=== PATIENT | female | born 1945 | race Caucasian/White ===

== ENCOUNTER 2020-06-12 11:43 | Observation (INO) | payer OTHER ==
[2020-06-12 12:16] LABS: Absolute Lymphocytes (CBC) 1.6 K/uL (0.7-4.9); Basophils % 0.8 % (0-1.3); Hematocrit 43.2 % (36.0-45.0); MPV 8.7 fL (7.6-11.3); RBC Red Blood Cell Count 4.73 M/uL (3.86-4.86)
--- NOTE | 2020-06-12 12:18 | EDPHYS ---
Physician Documentation [facility] Name: Missy Palacios Age: 75 yrs Sex: Female : 1945 Arrival Date: 06/12/2020 Time: 11:47 Bed 4 Private MD: Blair Poole HPI: 06/12 12:08 This 75 yrs old Female presents to ER via Wheelchair with complaints of ana possible tia, couldnt talk prior to arrival. 12:08 The patient's problem is reported as dysphasia, weakness, in the right lower extremity. ana Onset: The symptoms/episode began/occurred gradually, just prior to arrival, this morning, 3 day(s) ago, and became worse this morning. Duration: The episodes are intermittent, lasting 30 second(s). Context: the episode(s) was witnessed, by family, daughter. The symptoms are alleviated by nothing. The symptoms are aggravated by nothing. The patient presents to the emergency department with a speech or higher order brain function problem, aphasia, difficult walking, the patient falls to the right, paresthesias of the left upper extremity, right upper extremity. Context: occurred at home. Associated signs and symptoms: The patient has no apparent associated signs or symptoms. Associated signs and symptoms: Pertinent positives: dizziness, gait abnormality. Historical: - Allergies: 12:02 No Known Allergies; ss - Home Meds: 12:02 enalapril maleate 40 mg Oral tab 1 tab once daily [Active]; ss - Immunization history:: Adult Immunizations up to date. - Social history:: Smoking status: Patient denies any tobacco usage or history of. ROS: 12:10 Constitutional: Negative for fever, chills, and weight loss, Eyes: Negative for injury, ana pain, redness, and discharge, ENT: Negative for injury, pain, and discharge, Neck: Negative for injury, pain, and swelling, Cardiovascular: Negative for chest pain, palpitations, and edema, Respiratory: Negative for shortness of breath, cough, wheezing, and pleuritic chest pain, Abdomen/GI: Negative for abdominal pain, nausea, vomiting, diarrhea, and constipation, Back: Negative for injury and pain, : Negative for injury, bleeding, discharge, and swelling, MS/Extremity: Negative for injury and deformity, Skin: Negative for injury, rash, and discoloration, Neuro: Negative for headache, weakness, numbness, tingling, and seizure, Psych: Negative for depression, anxiety, suicide ideation, homicidal ideation, and hallucinations, Allergy/Immunology: Negative for hives, rash, and allergies, Endocrine: Negative for neck swelling, polydipsia, polyuria, polyphagia, and marked weight changes, Hematologic/Lymphatic: Negative for swollen nodes, abnormal bleeding, and unusual bruising. Exam: 12:10 Constitutional: This is a well developed, well nourished patient who is awake, alert, ana and in no acute distress. Head/Face: Normocephalic, atraumatic. Eyes: Pupils equal round and reactive to light, extra-ocular motions intact. Lids and lashes normal. Conjunctiva and sclera are non-icteric and not injected. Cornea within normal limits. Periorbital areas with no swelling, redness, or edema. ENT: Nares patent. No nasal discharge, no septal abnormalities noted. Tympanic membranes are normal and external auditory canals are clear. Oropharynx with no redness, swelling, or masses, exudates, or evidence of obstruction, uvula midline. Mucous membranes moist. Neck: Trachea midline, no thyromegaly or masses palpated, and no cervical lymphadenopathy. Supple, full range of motion without nuchal rigidity, or vertebral point tenderness. No Meningismus. Chest/axilla: Normal chest wall appearance and motion. Nontender with no deformity. No lesions are appreciated. Cardiovascular: Regular rate and rhythm with a normal S1 and S2. No gallops, murmurs, or rubs. Normal PMI, no JVD. No pulse deficits. Respiratory: Lungs have equal breath sounds bilaterally, clear to auscultation and percussion. No rales, rhonchi or wheezes noted. No increased work of breathing, no retractions or nasal flaring. Abdomen/GI: Soft, non-tender, with normal bowel sounds. No distension or tympany. No guarding or rebound. No evidence of tenderness throughout. Back: No spinal tenderness. No costovertebral tenderness. Full range of motion. Skin: Warm, dry with normal turgor. Normal color with no rashes, no lesions, and no evidence of cellulitis. MS/ Extremity: Pulses equal, no cyanosis. Neurovascular intact. Full, normal range of motion. Neuro: Awake and alert, GCS 15, oriented to person, place, time, and situation. Cranial nerves II-XII grossly intact. Motor strength 5/5 in all extremities. Sensory grossly intact. Cerebellar exam normal. Normal gait. Psych: Awake, alert, with orientation to person, place and time. Behavior, mood, and affect are within normal limits. 12:14 Radiologist reports: see report ana 13:26 ECG was reviewed by the Attending Physician. ana Vital Signs: 11:58 BP 181 / 101; Pulse 68; Resp 16; Temp 98; Pulse Ox 98% on R/A; Weight 67.59 kg; Height sv 5 ft. 7 in. (170.18 cm); Pain 0/10; 12:34 BP 190 / 105; Pulse 70; Resp 16; Pulse Ox 99% ; sv 13:00 BP 198 / 96; Pulse 65; Resp 15; Pulse Ox 99% ; sv 13:15 BP 191 / 99; Pulse 67; Resp 12; Pulse Ox 100% ; sv 14:34 BP 182 / 87; Pulse 69; Resp 17; Pulse Ox 98% on R/A; tw2 11:58 Body Mass Index 23.34 (67.59 kg, 170.18 cm) sv NIH Stroke Scale Scores: 12:00 NIHSS Score: 0 sv 12:10 NIHSS Score: 0 ana MDM: 11:55 Patient medically screened. ana 12:13 Differential diagnosis: CVA, TIA. Data reviewed: vital signs, nurses notes, lab test ana result(s), EKG, radiologic studies, CT scan, MRI, plain films. Data interpreted: satellite project site monitor: rate is 68 beats/min, rhythm is normal sinus rhythm, Pulse oximetry: is not applicable for this patient encounter. Test interpretation: by ED physician or midlevel provider: ECG, plain radiologic studies. Counseling: I had a detailed discussion with the patient and/or guardian regarding: the historical points, exam findings, and any diagnostic results supporting the discharge/admit diagnosis, the presence of at least one elevated blood pressure reading (>120/80) during this emergency department visit, lab results, radiology results, the need for further work-up and treatment in the hospital. ED course: pt not a tpa candidate , at baseline, on off 3 days, now at normal , no deficits. 14:57 ED course: not atpa candidate, back to baseline, nih 0, symptoms on and off 3 days, no ana current deficit, daughter agrees. 06/12 12:04 Order name: Basic Metabolic Panel; Complete Time: 13:25 sv 06/12 12:04 Order name: CBC with Diff; Complete Time: 12:23 sv 06/12 12:04 Order name: Protime (+inr); Complete Time: 13:25 sv 06/12 12:04 Order name: Ptt, Activated; Complete Time: 13:25 sv 06/12 12:12 Order name: Glucose, Ancillary Testing; Complete Time: 12:23 EDMS 06/12 13:06 Order name: T4 Free EDMS 06/12 13:06 Order name: Thyroid Stimulating Hormone EDMS 06/12 13:06 Order name: Basic Metabolic Panel EDMS 06/12 13:06 Order name: Basic Metabolic Panel EDPA 06/12 13:06 Order name: CBC with Automated Diff EDMS 06/12 13:06 Order name: CBC with Automated Diff EDMS 06/12 13:06 Order name: Magnesium EDPA 06/12 13:06 Order name: Magnesium EDPA 06/12 13:07 Order name: Urinalysis EDPA 06/12 11:58 Order name: CT Stroke Brain w/o Contrast; Complete Time: 13:25 ss 06/12 12:04 Order name: Stroke CXR 1 View; Complete Time: 13:25 sv 06/12 12:04 Order name: EKG; Complete Time: 12:04 sv 06/12 12:04 Order name: Accucheck; Complete Time: 12:04 sv 06/12 12:04 Order name: Cardiac monitoring; Complete Time: 13:29 sv 06/12 12:04 Order name: EKG - Nurse/Tech; Complete Time: 13:29 sv 06/12 12:04 Order name: IV Saline Lock; Complete Time: 12:04 sv 06/12 12:10 Order name: Brain Wo Cont; Complete Time: 13:25 EDMS 06/12 13:03 Order name: CONS Physician Consult EDPA 06/12 13:06 Order name: Physical Therapy Consult EDPA 06/12 13:06 Order name: Heart Healthy EDPA 06/12 12:04 Order name: Labs collected and sent; Complete Time: 12:04 sv 06/12 12:04 Order name: NPO; Complete Time: 12:04 sv 06/12 12:04 Order name: O2 Per Protocol; Complete Time: 12:04 sv 06/12 12:04 Order name: O2 Sat Monitoring; Complete Time: 12:05 sv 06/12 12:04 Order name: Stroke Swallow Screen; Complete Time: 12:05 sv EC:26 Rate is 64 beats/min. Rhythm is regular. QRS Vaughn is Normal. [place] interval is normal. QRS ana interval is normal. QT interval is normal. No Q waves. T waves are Normal. No ST changes noted. Clinical impression: NSR w/ Non-specific ST/T Changes and No evidence of ischemia. Interpreted by me. Reviewed by me. Administered Medications: 13:20 Drug: foLIC Acid 1 mg Route: IVPB; Site: right forearm; sv 13:22 Follow up: Response: No adverse reaction; IV Status: Completed infusion sv 13:20 Drug: NS 0.9% 1000 ml Route: IV; Rate: 1 bolus; Site: right forearm; sv 14:30 Follow up: Response: No adverse reaction; IV Status: Completed infusion; IV Intake: sv 1000ml 13:20 Drug: Aspirin Chewable Tablet 324 mg Route: PO; sv 14:00 Follow up: Response: No adverse reaction sv 15:13 CANCELLED (ok by Dr Serrano to give upstairs): Zocor 20 mg PO once sv Point of Care Testing: Blood Glucose: 12:00 Blood Glucose: 92 mg/dL; sv Ranges: Critical Glucose Levels:Adult <50 mg/dl or >400 mg/dl <40 mg/dl or >180 mg/dl Disposition: 06/12/20 12:17 Hospitalization ordered by Yonny Lebron for Observation. Preliminary diagnosis are Transient cerebral ischemic attack, unspecified, Aphasia, Cerebral infarction - left frontal , acute. - Bed requested for Telemetry/MedSurg (observation). - Status is Observation. sv - Condition is Fair. - Problem is new. - Symptoms have improved. NIH Stroke Scale - NIH Stroke Score Date: 06/12/2020 Time: 12:00 Total Score = 0 1a. Level of Consciousness (LOC) - 0(Alert) 1b. Level of Consciousness (LOC) (Year \T\ Age) - 0(Both) 1c. LOC Commands (Open \T\ Closes Eyes/Chemical Tank Worker) - 0(Both) 2. Best Gaze (Lateral Gaze Paresis) - 0(Normal) 3. Visual Field Loss - 0(No visual loss) 4. Facial Palsy - 0(Normal) 5a. Left Arm: Motor (10-second hold) - 0(No drift) 5b. Right Arm: Motor (10-second hold) - 0(No drift) 6a. Left Leg: Motor (5-second hold - always test supine) - 0(No drift) 6b. Right Leg: Motor (5-second hold - always test supine) - 0(No drift) 7. Limb Ataxia (finger/nose \T\ heel/varela - test with eyes open) - 0(Absent) 8. Sensory Loss (pinprick arms/legs/face) - 0(Normal) 9. Best Language: Aphasia (description/naming/reading) - 0(No aphasia) 10. Dysarthria (speech clarity - read or repeat words) - 0(Normal) 11. Extinction and Inattention (visual/tactile/auditory/spatial/personal) - 0(No abnormality) Initials: NIH Stroke Scale - NIH Stroke Score Date: 06/12/2020 Time: 12:10 Total Score = 0 1a. Level of Consciousness (LOC) - 0(Alert) 1b. Level of Consciousness (LOC) (Year \T\ Age) - 0(Both) 1c. LOC Commands (Open \T\ Closes Eyes/Chemical Tank Worker) - 0(Both) 2. Best Gaze (Lateral Gaze Paresis) - 0(Normal) 3. Visual Field Loss - 0(No visual loss) 4. Facial Palsy - 0(Normal) 5a. Left Arm: Motor (10-second hold) - 0(No drift) 5b. Right Arm: Motor (10-second hold) - 0(No drift) 6a. Left Leg: Motor (5-second hold - always test supine) - 0(No drift) 6b. Right Leg: Motor (5-second hold - always test supine) - 0(No drift) 7. Limb Ataxia (finger/nose \T\ heel/varela - test with eyes open) - 0(Absent) 8. Sensory Loss (pinprick arms/legs/face) - 0(Normal) 9. Best Language: Aphasia (description/naming/reading) - 0(No aphasia) 10. Dysarthria (speech clarity - read or repeat words) - 0(Normal) 11. Extinction and Inattention (visual/tactile/auditory/spatial/personal) - 0(No abnormality) Initials: ana Signatures: Dispatcher [employer] EDMS Carlene Dumont Linda Mon RN RN Blair Pool MD MD cha Smirch, Shelby, RN RN ss Corrections: (The following items were deleted from the chart) 12:10 12:09 MR STROKE PROTOCOL+MRI.RAD.BRZ ordered. EDMS EDMS 13:19 12:17 Hospitalization Ordered by Yonny Lebron MD for Observation. Preliminary bd diagnosis is Transient cerebral ischemic attack, unspecified; Aphasia. Bed requested for Telemetry/MedSurg (observation). Status is Observation. Condition is Fair. Problem is new. Symptoms have improved. ana 14:57 13:19 06/12/2020 12:17 Hospitalization Ordered by Yonny Lebron MD for ana Observation. Preliminary diagnosis is Transient cerebral ischemic attack, unspecified; Aphasia. Bed requested for Telemetry/MedSurg (observation). Status is Observation. Condition is Fair. Problem is new. Symptoms have improved. bd 15:13 14:57 Zocor 20 mg PO once ordered. ana sv 15:37 14:57 06/12/2020 12:17 Hospitalization Ordered by Yonny Lebron MD for sv Observation. Preliminary diagnosis is Transient cerebral ischemic attack, unspecified; Aphasia; Cerebral infarction - left frontal , acute. Bed requested for Telemetry/MedSurg (observation). Status is Observation. Condition is Fair. Problem is new. Symptoms have improved. ana
--- NOTE | 2020-06-12 12:18 | ER ---
Nurse's Notes [facility] Name: Missy Palacios Age: 75 yrs Sex: Female : 1945 Arrival Date: 06/12/2020 Time: 11:47 Bed 4 Private MD: Diagnosis: Transient cerebral ischemic attack, unspecified;Aphasia;Cerebral infarction-left frontal , acute Presentation: 06/12 12:00 Chief complaint: Patient's son or daughter states: Unable to speak 20 minutes ago ss lasted until arrival to ER. Pt reports she is completely back to her baseline. Daughter reports she has been under a lot of stress lately. Patient also reports that since Thursday her R leg seems to be intermittently dragging. Coronavirus screen: Patient denies a cough. Patient denies shortness of breath or difficulty breathing. Patient denies measured and/or subjective temperature greater than 100.4F prior to today's visit. Patient denies travel on a cruise ship or to a country the [facility] currently lists as an affected area. Patient denies contact with known and/or suspected case of COVID-19. Proceed with normal triage. Ebola Screen: Patient denies exposure to infectious person. Patient denies travel to an Ebola-affected area in the 21 days before illness onset. Initial Sepsis Screen: Does the patient meet any 2 criteria? No. Patient's initial sepsis screen is negative. Does the patient have a suspected source of infection? No. Patient's initial sepsis screen is negative. Risk Assessment: Do you want to hurt yourself or someone else? Patient reports no desire to harm self or others. Onset of symptoms was June 12, 2020. 12:00 Method Of Arrival: Wheelchair ss 12:00 Acuity: SARBJIT 2 ss 12:00 No acute neurological deficit is noted. Pre-hospital glucose is not applicable to this sv patient. 12:[address] Serrano at bedside at this time. tw2 Triage Assessment: 15:22 The onset of the patients symptoms was June 12, 2020 at 11:40. sv Stroke Activation: Symptom onset > 6 hours Physician: Stroke Attending; Name: ; Notified At: ; Arrived At: Physician: Chief Stroke Resident; Name: ; Notified At: ; Arrived At: Physician: Stroke Resident; Name: ; Notified At: ; Arrived At: Physician: ED Attending; Name: ; Notified At: ; Arrived At: Physician: ED Resident; Name: ; Notified At: ; Arrived At: Historical: - Allergies: 12:02 No Known Allergies; ss - Home Meds: 12:02 enalapril maleate 40 mg Oral tab 1 tab once daily [Active]; ss - Immunization history:: Adult Immunizations up to date. - Social history:: Smoking status: Patient denies any tobacco usage or history of. Screenin:02 Abuse screen: Denies threats or abuse. Nutritional screening: No deficits noted. tw2 Tuberculosis screening: No symptoms or risk factors identified. Fall Risk Secondary diagnosis (15 points) impaired mobility. Assessment: 12:00 VAN Scoring: Arm Drift: Patients demonstrates NO arm weakness. Patient is VAN Negative. sv Reassessment: Dr Serrano at the bedside. 12:00 Reassessment: Daughter reports that she is at her baseline. General: Appears in no sv apparent distress. comfortable, slender, well developed, Behavior is calm, cooperative, appropriate for age. Pain: Denies pain. Neuro: Level of Consciousness is awake, alert, obeys commands, Oriented to person, place, time, situation, Moves all extremities. Full function Speech is normal, Facial symmetry appears normal, Denies weakness dizziness, numbness headache. Respiratory: Airway is patent Respiratory effort is even, unlabored, Respiratory pattern is regular, symmetrical. Derm: Skin is intact, Skin is pink, warm \T\ dry. Musculoskeletal: Range of motion: intact in all extremities. 12:00 T-PA (Activase) Screening: Contraindications: Rapidly improving condition or minor sv deficit: Yes. 12:01 Patient has been NPO before screening. The patient is alert, and able to follow tw2 commands. The patient does not exhibit slurred or garbled speech. The patient is not exhibiting difficulty speaking. The patient is exhibiting difficulty understanding words. The patient is able to swallow own secretions with no drooling or need for suction. Patient tolerated one teaspoon of water. No drooling, immediate coughing, gurgling, or clearing of the throat was noted. The patient tolerated 90mL of water. No drooling, immediate coughing, gurgling, or clearing of the throat was noted. The patient passed the bedside swallow screening. Oral medications may be given as ordered. Contact Physician for further diet orders. Provider notified of bedside swallow screening results: Blair Serrano MD. 13:20 Reassessment: Patient appears in no apparent distress at this time. No changes from sv previously documented assessment. Patient and/or family updated on plan of care and expected duration. Pain level reassessed. Patient is alert, oriented x 3, equal unlabored respirations, skin warm/dry/pink. 13:33 Reassessment: Attempted to call report, nurse to call back. sv 14:00 Reassessment: Patient appears in no apparent distress at this time. No changes from sv previously documented assessment. Patient and/or family updated on plan of care and expected duration. Pain level reassessed. Patient is alert, oriented x 3, equal unlabored respirations, skin warm/dry/pink. Vital Signs: 11:58 BP 181 / 101; Pulse 68; Resp 16; Temp 98; Pulse Ox 98% on R/A; Weight 67.59 kg; Height sv 5 ft. 7 in. (170.18 cm); Pain 0/10; 12:34 BP 190 / 105; Pulse 70; Resp 16; Pulse Ox 99% ; sv 13:00 BP 198 / 96; Pulse 65; Resp 15; Pulse Ox 99% ; sv 13:15 BP 191 / 99; Pulse 67; Resp 12; Pulse Ox 100% ; sv 14:34 BP 182 / 87; Pulse 69; Resp 17; Pulse Ox 98% on R/A; tw2 11:58 Body Mass Index 23.34 (67.59 kg, 170.18 cm) sv NIH Stroke Scale Scores: 12:00 NIHSS Score: 0 sv 12:10 NIHSS Score: 0 ana ED Course: 11:47 Patient arrived in ED. am2 11:55 Blair Serrano MD is Attending Physician. ana 11:56 Placed in gown. Bed in low position. Pulse ox on. NIBP on. tw2 11:58 Arm band placed on right wrist. ss 11:59 Christine Tomas, RN is Primary Nurse. [id number] 12:00 Inserted saline lock: 20 gauge in right forearm, using aseptic technique. Blood sv collected. Flushed right forearm with 5 ml normal saline. 12:02 Triage completed. ss 12:03 Linda Osborn, RN is Primary Nurse. sv 12:13 CT Stroke Brain w/o Contrast In Process Unspecified. EDMS 12:15 Brain Wo Cont Sent. sv 12:16 Yonny Lebron MD is Hospitalizing Provider. ana 12:26 Brain Wo Cont In Process Unspecified. EDMS 12:28 Patient moved to MRI. ss 13:01 Stroke CXR 1 View In Process Unspecified. EDMS 14:34 Report given to LIAM Rodriguez. tw2 15:22 No provider procedures requiring assistance completed. Patient admitted, IV remains in sv place. intact. Administered Medications: 13:20 Drug: foLIC Acid 1 mg Route: IVPB; Site: right forearm; sv 13:22 Follow up: Response: No adverse reaction; IV Status: Completed infusion sv 13:20 Drug: NS 0.9% 1000 ml Route: IV; Rate: 1 bolus; Site: right forearm; sv 14:30 Follow up: Response: No adverse reaction; IV Status: Completed infusion; IV Intake: sv 1000ml 13:20 Drug: Aspirin Chewable Tablet 324 mg Route: PO; sv 14:00 Follow up: Response: No adverse reaction sv 15:13 CANCELLED (ok by Dr Serrano to give upstairs): Zocor 20 mg PO once sv Point of Care Testing: Blood Glucose: 12:00 Blood Glucose: 92 mg/dL; sv Ranges: Intake: 14:30 IV: 1000ml; Total: 1000ml. sv Outcome: 12:17 Decision to Hospitalize by Provider. ana 14:34 Admitted to Med/surg accompanied by tech, room 203, Report called to LIAM Rodriguez tw2 14:34 Condition: stable 14:34 Instructed on the need for admit. 15:37 Patient left the ED. sv NIH Stroke Scale - NIH Stroke Score Date: 06/12/2020 Time: 12:00 Total Score = 0 1a. Level of Consciousness (LOC) - 0(Alert) 1b. Level of Consciousness (LOC) (Year \T\ Age) - 0(Both) 1c. LOC Commands (Open \T\ Closes Eyes/Senior Officer) - 0(Both) 2. Best Gaze (Lateral Gaze Paresis) - 0(Normal) 3. Visual Field Loss - 0(No visual loss) 4. Facial Palsy - 0(Normal) 5a. Left Arm: Motor (10-second hold) - 0(No drift) 5b. Right Arm: Motor (10-second hold) - 0(No drift) 6a. Left Leg: Motor (5-second hold - always test supine) - 0(No drift) 6b. Right Leg: Motor (5-second hold - always test supine) - 0(No drift) 7. Limb Ataxia (finger/nose \T\ heel/varela - test with eyes open) - 0(Absent) 8. Sensory Loss (pinprick arms/legs/face) - 0(Normal) 9. Best Language: Aphasia (description/naming/reading) - 0(No aphasia) 10. Dysarthria (speech clarity - read or repeat words) - 0(Normal) 11. Extinction and Inattention (visual/tactile/auditory/spatial/personal) - 0(No abnormality) Initials: kayce NIH Stroke Scale - NIH Stroke Score Date: 06/12/2020 Time: 12:10 Total Score = 0 1a. Level of Consciousness (LOC) - 0(Alert) 1b. Level of Consciousness (LOC) (Year \T\ Age) - 0(Both) 1c. LOC Commands (Open \T\ Closes Eyes/Senior Officer) - 0(Both) 2. Best Gaze (Lateral Gaze Paresis) - 0(Normal) 3. Visual Field Loss - 0(No visual loss) 4. Facial Palsy - 0(Normal) 5a. Left Arm: Motor (10-second hold) - 0(No drift) 5b. Right Arm: Motor (10-second hold) - 0(No drift) 6a. Left Leg: Motor (5-second hold - always test supine) - 0(No drift) 6b. Right Leg: Motor (5-second hold - always test supine) - 0(No drift) 7. Limb Ataxia (finger/nose \T\ heel/varela - test with eyes open) - 0(Absent) 8. Sensory Loss (pinprick arms/legs/face) - 0(Normal) 9. Best Language: Aphasia (description/naming/reading) - 0(No aphasia) 10. Dysarthria (speech clarity - read or repeat words) - 0(Normal) 11. Extinction and Inattention (visual/tactile/auditory/spatial/personal) - 0(No abnormality) Initials: ana Signatures: Dispatcher [employer] Linda Suarez RN RN sv Anderson, Corey, MD MD cha Smirch, Shelby, RN RN ss Bren Anderson RN RN tw2 Felisha Ozuna 2 Christine Tomas RN RN [id number] Corrections: (The following items were deleted from the chart) 12:15 11:58 BP 181 / 101; Pulse 68bpm; Resp 16bpm; Pulse Ox 98% RA; 67.59 kg; Height sv 5 ft. 7 in.; BMI: 23.3; Pain 0/10; ss
[2020-06-12] MEDS ORDERED: FOLIC ACID 5 MG/ML VIAL ONE (12:20)
[2020-06-12] MEDS ORDERED: NA CHLORIDE 0.9% 1,000 ML ONE (12:20)
[2020-06-12 12:23] LABS: Protime INR 0.97
--- NOTE | 2020-06-12 12:25 | RAD REPORT ---
EXAM DESCRIPTION: CT - Ct Stroke Brain Wo Cont - 06/12/2020 12:14 pm CLINICAL HISTORY: possible TIA Headache, drowsiness, CVA symptomology COMPARISON: No comparisons TECHNIQUE: All CT scans are performed using dose optimization technique as appropriate and may inclu de automated exposure control or mA/KV adjustment according to patient size. FINDINGS: No intracranial hemorrhage, hydrocephalus or extra-axial fluid collection.Mild generalized brain atrophy is present with moderate periventricular and deep white matter chronic microvascular i schemic changes.No areas of brain edema or evidence of midline shift. Small old lacune identified lef t insular region measuring 4 mm. The paranasal sinuses and mastoids are clear. The calvarium is intact. IMPRESSION: No acute intracranial abnormality. If there is continued clinical concern for CVA, MR i maging of the brain would be recommended. The findings were given to Dr. Serrano in the ER on 06/12/2020 at 12:21 p.m.
[2020-06-12 12:28] LABS: Potassium 4.1 mmol/L (3.5-5.1)
[2020-06-12] MEDS ORDERED: ASPIRIN 81 MG CHEWABLE TABLET ONE (12:39)
--- NOTE | 2020-06-12 12:43 | RAD REPORT ---
EXAM DESCRIPTION: MRI - Brain Wo Cont - 06/12/2020 12:32 pm CLINICAL HISTORY: tia COMPARISON: Head CT June 12, 2020 TECHNIQUE: Axial, sagittal, and coronal magnetic images of the brain were obtained. Contrast was not requested FINDINGS: Moderate signal within periventricular, deep and subcortical white matter likely ischemic secondary to small vessel disease Small areas of abnormal signal within the basal ganglia likely old lacunar infarction. Diffusion-weighted/ADC mapping demonstrates a 1 millimeter area of abnormal signal within the deep wh ite matter of the posterior left frontal lobe consistent with an acute micro infarct The ventricles are normal caliber. An extra-axial fluid collection is not present Fluid within the sinuses/mastoids is not noted IMPRESSION: Acute micro infarct white matter left frontal lobe
--- OUTSIDE RECORDS SUMMARY | 2020-06-12 12:51 | XMS REPORT | Continuity of Care Document ---
:1945 Author Organization [facility] Care Team Providers Name Role Phone [facility] Unavailable Un available Problems Problem Status Onset Classification Date Comments Sourc e Date Reported TONSILLITIS, Active Condition 10/24/2014 Med ical ACUTE 4 Group ALLERGIC Active Condition 10/24/2014 Medica l RHINITIS CAUSE 4 Group UNSPECIFIED Allergic Active Problem 12/03/2019 Data migrated [facility] dical rhinitis 4 from Group (disorder) Centricity on 04/14/15. Medications Medication Details Route Status Patient Ordering Order Source Instructions Provider Date Dexamethasone 8 mg, Inactive Route: 020 Medical intra-ARTIC Group ULAR, ONCE, Dosing Weight 70.455, kg, Priority: Routine, Start date: 11/28/19 15:41:00 STOCK CHASER, Stop date: 11/28/19 15:41:00 STOCK CHASER enalapril 10 mg 10 mg = 1 Active MH oral tablet tab, PO, 019 Medical Daily, Group Patient takes this in addition to 20mg tablet to =30mg per day., # 90 tab, 3 Refill(s), Pharmacy: [facility] enalapril 20 mg 20 mg = 1 Active MH oral tablet tab, PO, 019 Medical Daily, # 90 Group tab, 3 Refill(s), [id number] benzonatate 100 100 mg = 1 Active MH mg oral capsule cap, PO, 019 Medical TID, do not Group crush or chew, X 10 day, # 30 cap, 1 Refill(s), Pharmacy: [facility] [id number] triamcinolone 60 mg, Inactive ACETONIDE 40 Route: IM, 019 Medical mg/mL injectable ONCE, Group suspension Dosing Weight 67.273, kg, Start date: 08/15/19 7:51:00 CDT, Stop date: 08/15/19 7:51:00 CDT Azithromycin 5 See Active MH Day Dose Pack Instruction 019 Medica l 250 mg oral s, Take 2 Group tablet tablets by mouth the first day then 1 tablet by mouth days 2-5., X 5 day, # 6 tab, 0 Refill(s), Pharmacy: [facility] 52 benzonatate 150 150 mg = 1 No Longer MH mg oral capsule cap, PO, Active 019 Medical TID, # 30 Group cap, 1 Refill(s), Pharmacy: [facility] 52 {21 See Active MH (Methylprednisol Instruction 019 Med ical one 4 MG Oral s, PO, Take Group Tablet [Medrol]) by mouth as } Pack [Medrol directed on Dosepak] label., X 6 day, # 1 Pack, 0 Refill(s), Pharmacy: [facility] 52 montelukast 10 10 mg = 1 Active MH mg oral tablet tab, PO, 019 Medical Bedtime, # Group 90 tab, 0 Refill(s) CEPHALEXIN 500 1 po tid Active MG CAPS 014 Medical Group LISINOPRIL 10 MG qd Active TABS 014 Medical Group NASONEX 50 1 spray Active MCG/ACT SUSP each 014 Medical nostril q Group day ALA-HIST PE 2-10 1 Q 6 HRS Active MG TABS PRN 014 Medical Group Allergies, Adverse Reactions, Alerts Substance Category Reaction Severity Reaction Status Date Comments S ource type Reported No Known Assertion Drug Medication allergy Medic al Allergies Group Immunizations Immunization Date Given Site Status Last Updated Comments Britt rce influenza virus 09/14/2019 completed [facility] Medical vaccine, History: heb Group inactivated<sup>1 </sup> Results No Data Provided for This Section Pathology Reports No Data Provided for This Section Diagnostic Reports No Data Provided for This Section Consultation Notes No Data Provided for This Section Discharge Summaries No Data Provided for This Section History and Physicals No Data Provided for This Section Vital Signs Vital Sign Value Date Comments Source Systolic (mm Hg) 165 11/28/2019 Medical Group Diastolic (mm Hg) 93 11/28/2019 Medical Group Heart Rate 82 11/28/2019 Medical Grou p Temperature Oral (F) 97.7 F 11/28/2019 [facility]i [facility] Group Weight 70.455 11/28/2019 Medical Grou p Height 167.64 cm 09/02/2019 Medical Grou p Weight 67.727 09/02/2019 Medical Grou p BMI Calculated 24.1 09/02/2019 Medical Gr oup Systolic (mm Hg) 170 09/02/2019 Medical Group Diastolic (mm Hg) 97 09/02/2019 Medical Group Heart Rate 67 09/02/2019 Medical Grou p Temperature Oral (F) 98.0 F 09/02/2019 Medi [facility] Group Systolic (mm Hg) 148 08/15/2019 Medical Group Diastolic (mm Hg) 75 08/15/2019 Medical Group Heart Rate 97 08/15/2019 Medical Grou p Temperature Oral (F) 98.5 F 08/15/2019 Medi [facility] Group Height 167.64 cm 08/15/2019 Medical Grou p Weight 67.273 08/15/2019 Medical Grou p BMI Calculated 23.94 08/15/2019 Medical Gr oup Systolic (mm Hg) 164 07/25/2019 Medical Group Diastolic (mm Hg) 82 07/25/2019 Medical Group Heart Rate 83 07/25/2019 Medical Grou p Temperature Oral (F) 98.1 F 07/25/2019 Medi [facility] Group Height 167.64 cm 07/25/2019 Medical Grou p Weight 67.727 07/25/2019 Medical Grou p BMI Calculated 24.1 07/25/2019 Medical Gr oup Weight 145 10/24/2014 Medical Grou p Temperature Oral (F) 98.1 F 10/24/2014 Medi bryson Group Systolic (mm Hg) 180 10/24/2014 Medical Group Diastolic (mm Hg) 90 10/24/2014 Medical Group Heart Rate 74 10/24/2014 Medical Grou p Respitory Rate 16 10/24/2014 Medical Gr oup Weight 151 01/19/2014 Medical Grou p Height 66 01/19/2014 Medical Grou p Systolic (mm Hg) 120 01/19/2014 Medical Group Diastolic (mm Hg) 80 01/19/2014 Medical Group Temperature Oral (F) 98.5 F 01/19/2014 Medi bryson Group Encounters Location Location Encounter Encounter Reason Attending ADM DC Stat us Source Details Type Number For Provider Date Date Visit [facility] Office [id number] [facility] 10/24 10/24 [facility] Visit [address] Kendall /2013 Medic al [facility] Outpatient [id number] BRAYAN 08/29 [facility] Outpatient [id number] Brayan 07/25 [facility] [place] Outpatient [id number] [facility] 07/25 [facility] Kendall [facility] Outpatient [id number] [facility] 07/25 07/26 [facility] Ambulatory [id number] Nadya 07/25 07/25 [facility] Pre-Reg e [facility] [place] Outpatient [id number] Brayan 08/15 [facility] [id number] [facility] 08/15 08/16 [facility] [place] Outpatient [id number] Fiona 08/29 [facility] [id number] Fiona 08/29 08/29 [facility] Pre-Reg [facility] [place] Outpatient [id number] Fiona 09/02 [facility] Outpatient [id number] Fiona 09/02 09/03 [facility] Phone [id number] 09/07 09/09 [facility] Message [facility] [place] Outpatient [id number] Fiona 11/28 [facility] [id number] Fiona 11/28 11/29 [facility] Gloria /2019 Medical Medicine [facility] Phone [id number] 11/29 12/01 [facility] Message [facility] [place] Procedures Procedure Code Date Perfomer Comments Source Arthrocentesis, 11/28/2019 Medica l aspiration and/or Group injection, major joint or bursa (eg, shoulder, hip, knee, subacromial bursa); without ultrasound guidance Bilateral [id number] Medical blepharoplasty of Group upper eyelids Eyebrow and/or [id number] Medical eyelid operations Group TL - Tubal ligation [id number] [facility] dical Group Assessment and Plan No Data Provided for This Section Plan of Care No Data Provided for This Section Social History Social History Date Source Social History TypeResponse 02/07/2016 Medical G roup Alcohol Never Smoking Status Never smoker; Lives with someone who smo kes; Cigarette Smoking Last 365 Days No; Reg Smoking Cessation Counseling No entered on: 11/28/19 Family History No Data Provided for This Section Advance Directives No Data Provided for This Section Functional Status No Data Provided for This Section
[2020-06-12] MEDS ORDERED: ACETAMINOPHEN 500 MG TAB PO PRN (13:03)
--- NOTE | 2020-06-12 13:11 | RAD REPORT ---
EXAM DESCRIPTION: Efren Single View06/12/2020 1:01 pm CLINICAL HISTORY: cough COMPARISON: none FINDINGS: Calcified granuloma right lung The lungs appear clear of acute infiltrate. The heart is normal size IMPRESSION: No acute abnormalities displayed
--- NOTE | 2020-06-12 13:13 | P.HP ---
Certification for Inpatient Patient admitted to: Observation With expected LOS: <2 Midnights <Cain Hartley - Last Filed: 06/12/20 13:13> Patient History Date of Service: 06/12/20 Reason for admission: CVA History of Present Illness: 75-year-old female with a past medical history of essential hypertension that has been fairly well controlled until recently presents to the emergency room brought by her daughter with complaints of possible stroke. Patient's the daughter states that they were shopping earlier today. As the relieve in the store daughter noticed that patient was dragging her right foot, became slightly disoriented and would not respond to verbal stimulation. In the emergency room CT of the head shows no acute pathology. MRI of the brain is pending. Overall blood work is unremarkable. Chest x-ray pending. EKG unremarkable. On physical exam patient is alert and oriented x3. She is having no problems answering questions and states that her right leg and weakness has resolved. States that she only takes medication for hypertension but daughter states that she has been under a lot of stress because she has had to put her in a correction due to advanced Alzheimer's disease. Patient will be placed in observation overnite for further workup. Home medications list reviewed: Yes (Enalapril 40 mg daily) - Past Medical/Surgical History Diabetic: No -: Essential hypertension -: None Psychosocial/ Personal History: Patient lives independently at home. Patient is . recently placed in correction due to Alzheimer's - Family History Father -: Hypertension, Other (see notes) (Alzheimer's) Mother -: Other (see notes) (Seizures) Sister -: Other (see notes) (Parkinson's) - Social History Smoking Status: Never smoker Alcohol use: No CD- Drugs: No Caffeine use: No Place of Residence: Home <Cain Hartley - Last Filed: 06/12/20 13:13> Date of Service: 06/13/20 <Uriel Lebron - Last Filed: 06/13/20 16:40> Review of Systems General: Unremarkable Eyes: Unremarkable ENT: Unremarkable Respiratory: Unremarkable Cardiovascular: Unremarkable Gastrointestinal: Unremarkable Genitourinary: Unremarkable Musculoskeletal: As per HPI Integumentary: Unremarkable Neurological: As per HPI <Cain Hartley - Last Filed: 06/12/20 13:13> Physical Examination - Physical Exam General: Alert, In no apparent distress, Oriented x3 HEENT: Atraumatic, Normocephalic, PERRLA Neck: Supple, Other (Trachea midline) Respiratory: Clear to auscultation bilaterally, Normal air movement Cardiovascular: No edema, Normal pulses, Regular rate/rhythm, Normal S1 S2 Capillary refill: <2 Seconds Gastrointestinal: Normal bowel sounds, Soft and benign, Non-distended Musculoskeletal: No clubbing, No swelling, No contractures Integumentary: No rashes, No breakdown, No significant lesion, No tenderness/swelling Neurological: Normal gait, Normal speech, Normal strength at 5/5 x4 extr, Normal tone, Normal affect - Studies Laboratory Data (last 24 hrs) 06/12/20 12:00: PT 11.4, INR 0.97, APTT 33.0 06/12/20 12:00: WBC 6.7, Hgb 14.3, Hct 43.2, Plt Count 226 06/12/20 12:00: Sodium 144, Potassium 4.1, BUN 19 H, Creatinine 0.88, Glucose 98 <Cain Hartley - Last Filed: 06/12/20 13:13> Assessment and Plan - Plan Impression: Cardiovascular accident versus TIA: Essential hypertension: Plan: Cardiovascular accident versus TIA: Will place patient in observation Overnite. Neurology consulted-Dr. Moseley. Will keep patient on telemetry. PT evaluation. Will order echocardiogram and carotid Doppler. MRI of the brain pending. CT of the head shows no intracranial bleeding and no acute pathology. Continue fall precautions. Will start aspirin 81 mg daily. Anticipate discharge within the next 24-48 hr. Essential hypertension: Will resume home medications of enalapril 40 mg daily. Will monitor blood pressure. Discharge Plan: Home Plan to discharge in: 48 Hours - Advance Directives Does patient have a Living Will: No Does patient have a Durable POA for Healthcare: Yes - Code Status/Comfort Care Code Status Assessed: Yes Time Spent Managing Pts Care (In Minutes): 55 <Cain Hartley - Last Filed: 06/12/20 13:13> Physician Review Additional Text: Patient was seen and examined and findings were discussed on 06/12/2020 Agree with the assessment and plan as documented by the YELENA <Uriel Lebron - Last Filed: 06/13/20 16:40>
[2020-06-12 15:56] VITALS: BMI 24.3
[2020-06-12] MEDS: ENOXAPARIN 40 MG/0.4 ML SQ SCH (16:31)
--- NOTE | 2020-06-12 16:36 | RAD REPORT ---
EXAM DESCRIPTION: USCarotid Artery Bilateral06/12/2020 3:52 pm CLINICAL HISTORY: cva COMPARISON: None FINDINGS: The velocity of the right internal carotid artery equals 105 cm/sec. The right ICA/CCA rat io 2 The velocity of the left internal carotid artery equals 53 cm/sec. The left ICA/CCA ratio . 9 Mild plaque is present within the carotid arteries. The vertebral arteries demonstrate antegrade flow IMPRESSION: Mild plaque within the carotid arteries without evidence of a hemodynamically significan t stenosis NASCET criteria used. Mild 0-49% stenosis Moderate 50-69% stenosis Severe 70-99% stenosis
[2020-06-12 16:40] LABS: Thyroid Stimulating Hormone 1.6 uIU/mL (0.360-3.740)
[2020-06-12 18:51] LABS: Urine Appearance CLEAR; Urine Bilirubin NEGATIVE (NEG); Urine Blood NEGATIVE (NEG); Urine Color YELLOW; Urine Glucose NEGATIVE (NEG); Urine Protein NEGATIVE (NEG); Urine Urobilinogen 0.2 mg/dL (0.2-1.0); Urine pH 6.5 (5.0-7.0)
[2020-06-12 19:43] LABS: Urine Microscopic Reflex ORDER UMIC
[2020-06-12] MEDS ORDERED: ATORVASTATIN 10 MG TAB PO SCH (21:00)
[2020-06-12 21:52] LABS: Urine Bacteria <20 /HPF (<20); Urine Culture Reflex Order REFLEXED; Urine RBC <5 /HPF (NONE SEEN)
[2020-06-13 05:53] LABS: Absolute Lymphocytes (CBC) 1.9 K/uL (0.7-4.9); Basophils % 1.4 % (0-1.3); Hematocrit 41.3 % (36.0-45.0); Lymphocytes % 37.7 % (15.3-44.8); MPV 8.4 fL (7.6-11.3); RBC Red Blood Cell Count 4.51 M/uL (3.86-4.86)
[2020-06-13 06:11] LABS: Magnesium 2.3 mg/dL (1.8-2.4); Potassium 4.2 mmol/L (3.5-5.1)
[2020-06-13] MEDS ORDERED: HYDRALAZINE HCL 20 MG/ML VIAL IV PRN (07:34)
[2020-06-13] MEDS ORDERED: CEFTRIAXONE/SWI 2gm 2 GM/20 ML SYR IV ONE (08:00)
[2020-06-13] MEDS: ENOXAPARIN 40 MG/0.4 ML SQ SCH (08:54)
[2020-06-13] MEDS ORDERED: ASPIRIN 81 MG CHEWABLE TABLET PO SCH (09:00)
[2020-06-13] MEDS ORDERED: ENALAPRIL 10 MG TAB PO SCH ×2 (09:00)
[2020-06-13 09:49] VITALS: O2SAT 95
--- NOTE | 2020-06-13 12:18 | P.DS ---
Admission Date: 06/12/20 Discharge Date: 06/13/20 Reason for Admission: CVA Consultations: [facility] - Neurology Brief History of Present Illness: 75-year-old female with a past medical history of essential hypertension that has been fairly well controlled until recently presents to the emergency room brought by her daughter with complaints of possible stroke. Patient's the daughter states that they were shopping earlier today. As the relieve in the store daughter noticed that patient was dragging her right foot, became slightly disoriented and would not respond to verbal stimulation. In the emergency room CT of the head shows no acute pathology. MRI of the brain is pending. Overall blood work is unremarkable. Chest x-ray pending. EKG unremarkable. On physical exam patient is alert and oriented x3. She is having no problems answering questions and states that her right leg and weakness has resolved. States that she only takes medication for hypertension but daughter states that she has been under a lot of stress because she has had to put her in a long-term due to advanced Alzheimer's disease. Patient will be placed in observation overnite for further workup. Hospital Course: 75-year-old female with a past medical history of essential hypertension that has been fairly well controlled until recently presents to the emergency room brought by her daughter with complaints of possible stroke. Patient's the daughter states that they were shopping earlier today. As the relieve in the store daughter noticed that patient was dragging her right foot, became slightly disoriented and would not respond to verbal stimulation. During this hospital course MRI shows an acute micro infarct of the left frontal lobe. Patient does not have any neurologic deficits. Carotid Doppler showed mild plaquing throughout both carotid arteries but no hemodynamically significant stenosis. Echocardiogram shows Neurology was consulted. Patient will follow up with as an outpatient. She is also noted to have a mild urinary tract infection. She was given 1 dose of 1 gm ceftriaxone IV. She will be discharged on Ceftin 500 mg b.i.d. p.o. to complete 7 days. At this time patient is stable. She is instructed to follow up with Neurology and her PCP. Patient verbalized understanding. <Cain Hartley - Last Filed: 06/13/20 14:00> Admission Date: 06/12/20 Discharge Date: 06/13/20 Hospital Course: Patient was seen and examined and findings were discussed Agree with the assessment and plan as documented by the YELENA <BernardinoZahraUrielyo Reina - Last Filed: 06/13/20 16:37> Disposition: ROUTINE DISCHARGE Discharge Condition: GOOD Vital Signs/Physical Exam: Temp Pulse Resp BP Pulse Ox 97.3 F 62 18 160/90 H 95 06/13/20 08:00 06/13/20 08:00 06/13/20 08:00 06/13/20 08:00 06/13/20 08:00 General: Alert, In no apparent distress, Oriented x3 HEENT: Atraumatic, Normocephalic, PERRLA Neck: Supple, Other (Trachea midline) Respiratory: Clear to auscultation bilaterally, Normal air movement Cardiovascular: No edema, Normal pulses, Regular rate/rhythm, Normal S1 S2 Capillary refill: <2 Seconds Gastrointestinal: Normal bowel sounds, Soft and benign Musculoskeletal: No clubbing, No swelling, No contractures Integumentary: No rashes, No breakdown, No significant lesion Neurological: Normal gait, Normal speech, Normal strength at 5/5 x4 extr, Normal tone Laboratory Data at Discharge: WBC 5.1 K/uL (4.3-10.9) D 06/13/20 05:27 Hgb 13.9 g/dL (12.0-15.0) 06/13/20 05:27 Hct 41.3 % (36.0-45.0) 06/13/20 05:27 Plt Count 198 K/uL (152-406) 06/13/20 05:27 PT 11.4 SECONDS (9.5-12.5) 06/12/20 12:00 INR 0.97 06/12/20 12:00 APTT 33.0 SECONDS (24.3-36.9) 06/12/20 12:00 Sodium 140 mmol/L (136-145) 06/13/20 05:27 Potassium 4.2 mmol/L (3.5-5.1) 06/13/20 05:27 BUN 16 mg/dL (7-18) 06/13/20 05:27 Creatinine 0.97 mg/dL (0.55-1.3) 06/13/20 05:27 Glucose 141 mg/dL (74-106) H 06/13/20 05:27 Magnesium 2.3 mg/dL (1.8-2.4) 06/13/20 05:27 Triglycerides 94 mg/dL (<150) 06/13/20 05:27 Cholesterol 165 mg/dL (<200) 06/13/20 05:27 HDL Cholesterol 68 mg/dL (40-60) H 06/13/20 05:27 Cholesterol/HDL Ratio 2.43 06/13/20 05:27 <Jose AngelnitinCain boudreaux - Last Filed: 06/13/20 14:00> Vital Signs/Physical Exam: Temp Pulse Resp BP Pulse Ox 97.9 F 63 19 169/76 H 95 06/13/20 12:00 06/13/20 12:00 06/13/20 12:00 06/13/20 12:00 06/13/20 12:00 Laboratory Data at Discharge: WBC 5.1 K/uL (4.3-10.9) D 06/13/20 05:27 Hgb 13.9 g/dL (12.0-15.0) 06/13/20 05:27 Hct 41.3 % (36.0-45.0) 06/13/20 05:27 Plt Count 198 K/uL (152-406) 06/13/20 05:27 PT 11.4 SECONDS (9.5-12.5) 06/12/20 12:00 INR 0.97 06/12/20 12:00 APTT 33.0 SECONDS (24.3-36.9) 06/12/20 12:00 Sodium 140 mmol/L (136-145) 06/13/20 05:27 Potassium 4.2 mmol/L (3.5-5.1) 06/13/20 05:27 BUN 16 mg/dL (7-18) 06/13/20 05:27 Creatinine 0.97 mg/dL (0.55-1.3) 06/13/20 05:27 Glucose 141 mg/dL (74-106) H 06/13/20 05:27 Magnesium 2.3 mg/dL (1.8-2.4) 06/13/20 05:27 Triglycerides 94 mg/dL (<150) 06/13/20 05:27 Cholesterol 165 mg/dL (<200) 06/13/20 05:27 HDL Cholesterol 68 mg/dL (40-60) H 06/13/20 05:27 Cholesterol/HDL Ratio 2.43 06/13/20 05:27 <Uriel Lebron - Last Filed: 06/13/20 16:37> Patient Discharge Instructions: Please review new home medications. Instruct patient to follow up with Neurology Dr. Moseley and with her PCP to monitor her blood pressure. Diet: Regular Activity: Ad miracle Time spent managing pt's care (in minutes): 55 <Cain Hartley - Last Filed: 06/13/20 14:00> <Uriel Lebron - Last Filed: 06/13/20 16:37> Home Medications: Enalapril Maleate [Vasotec] 40 mg PO DAILY 06/12/20 Aspirin Chewable [Aspirin Chewable*] 81 mg PO DAILY 30 Days #30 tab.chew 06/13/20 Atorvastatin Calcium [Lipitor] 40 mg PO BEDTIME 30 Days #30 tab 06/13/20 Cefuroxime [Ceftin] 500 mg PO BID 7 Days #14 tab 06/13/20 carvediloL [Coreg*] 3.125 mg PO BID 6AM 6PM 30 Days #60 tab 06/13/20 New Medications: Aspirin Chewable [Aspirin Chewable*] 81 mg PO DAILY 30 Days #30 tab.chew Cefuroxime [Ceftin] 500 mg PO BID 7 Days #14 tab carvediloL [Coreg*] 3.125 mg PO BID 6AM 6PM 30 Days #60 tab Atorvastatin Calcium [Lipitor] 40 mg PO BEDTIME 30 Days #30 tab Followup: Dov Moseley MD [ASSOCIATE-ACTIVE - CAN ADMIT] - Israel Dickerson MD [COURTESY - CAN ADMIT] -
[2020-06-13 15:30] VITALS: BP 169/76; TEMP 97.9
[2020-06-13] MEDS ORDERED: carvediloL 3.125 MG TAB PO SCH (18:00)
[2020-06-13] MEDS ORDERED: ATORVASTATIN 40 MG TAB PO SCH (21:00)
--- NOTE | 2020-06-14 07:37 | EKG ---
Test Date: 2020-06-12 Test Time: 13:13:10 Entry Tech: WALLACE MEASUREMENT RESULTS: Intervals: Rate: 64 CT: 148 QRSD: 80 QT: 404 QTc: 416 Pass Christian: P: 66 CT: 148 QRS: 30 T: 25 INTERPRETIVE STATEMENTS: Normal sinus rhythm Septal infarct, age undetermined Abnormal ECG No previous ECG available for comparison Electronically Signed On 06-14-20 07:32:54 CDT by Dwain Epperson
--- NOTE | 2020-06-14 09:54 | ECHO ---
HEIGHT: 5 ft 6 in WEIGHT: 151 lb 0 oz DATE OF STUDY: 06/13/[address]: Cain Hartley 2-DIMENSIONAL: YES M.MODE: YES DOPPLER: YES COLOR FLOW: YES TDS: NO PORTABLE: NO DEFINITY: NO BUBBLE STUDY: NO DIAGNOSIS: CEREBRAL VASCULAR ACCIDENT CARDIAC HISTORY: CATHERIZATION: NO SURGERY: NO PROSTHETIC VALVE: NO PACEMAKER: NO MEASUREMENTS (cm) DIASTOLIC (NORMALS) SYSTOLIC (NORMALS) IVSd 1.0 (0.6-1.2) LA Diam 3.1 (1.9-4.0) LVEF 64% LVIDd 4.0 (3.5-5.7) LVIDs 2.6 (2.0-3.5) %FS 35% LVPWd 1.0 (0.6-1.2) Ao Diam 2.4 (2.0-3.7) 2 DIMENSIONAL ASSESSMENT: RIGHT ATRIUM: NORMAL LEFT ATRIUM: NORMAL RIGHT VENTRICLE: NORMAL LEFT VENTRICLE: NORMAL TRICUSPID VALVE: NORMAL MITRAL VALVE: NORMAL PULMONIC VALVE: NORMAL AORTIC VALVE: NORMAL PERICARDIAL EFFUSION: NONE AORTIC ROOT: NORMAL LEFT VENTRICULAR WALL MOTION: NORMAL DOPPLER/COLOR FLOW: MILD MITRAL AND TRICUSPID REGURGUTATION. COMMENTS: NORMAL LEFT VENTRICULAR SIZE AND FUNCTION. NO WALL MOTION ABNORMALITY. NO VEGETATION. MILD MITRAL AND TRICUSPID REGURGUTATION. TECHNOLOGIST: Neema SHANNON
--- NOTE | 2020-06-15 20:22 | CON ---
Reason For Consultation: Consultation called because of stroke. History Of Present Illness: Ms. Palacios is a 75-year-old right-handed patient with history of hypertension, who comes in with possible stroke. The patient was shopping with her daughter when she became suddenly confused and had difficulty moving her right leg. She was brought to [facility]. Actually, it should be noted that the patient's symptoms began 3 days prior to her coming in to [facility]. In the event, she had a head CT scan on arrival that showed no acute isch emic or hemorrhagic change and she was treated for stroke given her deficits, although it should be n oted at the time of the evaluation in the emergency room her NIH Stroke Scale was 0. She did receive aspirin 81 mg and was placed on Lipitor 40 mg at bedtime. She had permissive hypertension and she d id have folic acid along with Lovenox for DVT prophylaxis. The following day when I saw the patient, the MRI was completed and it identified an acute microinfarct in the white matter of the left fronta l lobe. It measured approximately 1 mm. The patient's deficits however had largely resolved and she complained of no difficulty moving the leg and no confusion. Past Medical History: As indicated. Family History: Hypertension in father. Seizures in mother. Daughter also diagnosed with Alzheimer disease. Sister with Parkinson disease. Social History: No alcohol, IV drugs, or tobacco smoking. Allergies: NO KNOWN DRUG ALLERGIES. Review of Systems: No recent fevers or chills, nausea, vomiting, myalgias, arthralgias, headache, weight change, rash, o r psychiatric complaints. Physical Examination: Vital Signs: Blood pressure 169/76, pulse of 63, respiratory rate 19, temperature 97.9, oxygen satur ation 95% on room air. Weight 151 pounds, height 5 feet 6 inches, BMI 24.4. General: Ms. Palacios is resting comfortably in her bed. She is in no acute distress. She is normoce phalic, atraumatic. Sclerae are anicteric. Oropharynx is pink and moist. Neck: Supple. Chest: Clear. Heart: Regular. Extremities: Show no edema, cyanosis, or clubbing. Neurological: She is alert and oriented to situation, place, and person. She has no expressive or r eceptive aphasias. She has normal labial, lingual, and guttural sounds. She has no focal cranial ne rves, motor, coordination, sensory, or gait deficits. Laboratory Studies: Complete blood count with differential is normal. Coagulation panel is normal. Chemistries remarkable for slightly elevated glucose of 141, HDL cholesterol is at 68, LDL cholester ol of 78, TSH 1.60. Her urinalysis showed 2+ esterase and 10-20 white blood cells. Her echocardiogr am showed ejection fraction of 64% with mild mitral and tricuspid regurgitation. Her carotid Doppler studies showed mild plaque in the carotid arteries without evidence of hemodynamically significant s tenosis. Assessment: Ms. Palacios is a 75-year-old patient with a small stroke with great resolution. Risk fac tors of hypertension and possibly some mild dehydration. She is now on aspirin, folic acid, and stat in and doing very well. Plan: 1.Continue medications as indicated. 2.The patient should hydrate with 8 glasses of water daily. 3.Call Dr. Moseley's clinic after discharge and follow up within 1 month. SERGIO Voice ID: [id number] Report ID: [id number]
== END 2020-06-13 15:26 | disposition home or self-care (01) ==
LOC: ER 11:43 → ERHOLD 13:01 → 2ND 14:35 → OBSVTOIN 06-13 08:01 → INTOOBSV 06-13 08:01
PROVIDERS: ADMIT Family Medicine; ATTEND Family Medicine
DX: I63.9 Cerebral infarction, unspecified (principal); R47.01 Aphasia; I65.23 Occlusion and stenosis of bilateral carotid arteries; R94.31 Abnormal electrocardiogram [ECG] [EKG]; I07.1 Rheumatic tricuspid insufficiency; I34.0 Nonrheumatic mitral (valve) insufficiency; I10 Essential (primary) hypertension; Z79.899 Other long term (current) drug therapy
CPT/HCPCS: 96361; 93005; 93306; 87088; 85025 ×2; 87086; 80048 ×2; 36415 ×2; 83735; 85610; 80061; 82947; 85730; 84443; 84439; 70450; 71045; 93880; 70551; 97161; 94760 ×3; 96374; 99285; J1650 ×2; J0696; J7030; G0378 ×3; 81003; 81015

== ENCOUNTER 2020-07-11 09:28 | Emergency (ER) | payer OTHER ==
[2020-07-11 09:52] LABS: Absolute Lymphocytes (CBC) 1.5 K/uL (0.7-4.9); Basophils % 1.2 % (0-1.3); Hematocrit 41.5 % (36.0-45.0); Lymphocytes % 21.2 % (15.3-44.8); MPV 8.6 fL (7.6-11.3); RBC Red Blood Cell Count 4.61 M/uL (3.86-4.86)
[2020-07-11 09:55] LABS: Protime INR 1.03
--- OUTSIDE RECORDS SUMMARY | 2020-07-11 10:00 | XMS REPORT | Continuity of Care Document ---
:1945 Author Organization [employer] Care Team Providers Name Role Phone [employer] Unavailable Un available Problems Problem Status Onset Classification Date Comments Sourc e Date Reported TONSILLITIS, Active Condition 10/24/2014 Med ical ACUTE 4 Group Allergic Active Problem 12/03/2019 Data migrated Me dical rhinitis 4 from [employer] (disorder) Centricity on 04/14/15. ALLERGIC Active Condition 10/24/2014 Medica l RHINITIS CAUSE 4 Group UNSPECIFIED Medications Medication Details Route Status Patient Ordering Order Source Instructions Provider Date Dexamethasone 8 mg, Inactive Route: 020 Medical intra-ARTIC Group ULAR, ONCE, Dosing Weight 70.455, kg, Priority: Routine, Start date: 11/28/19 15:41:00 FRAME STRAIGHTENER, Stop date: 11/28/19 15:41:00 FRAME STRAIGHTENER enalapril 10 mg 10 mg = 1 Active oral tablet tab, PO, 019 Medical Daily, Group Patient takes this in addition to 20mg tablet to =30mg per day., # 90 tab, 3 Refill(s), Pharmacy: [facility] enalapril 20 mg 20 mg = 1 Active MH oral tablet tab, PO, 019 Medical Daily, # 90 Group tab, 3 Refill(s), [id number] benzonatate 100 100 mg = 1 Active MH mg oral capsule cap, PO, 019 Medical TID, do not Group crush or chew, X 10 day, # 30 cap, 1 Refill(s), Pharmacy: [facility] [id number] triamcinolone 60 mg, Inactive ACETONIDE [...] day, # 6 tab, 0 Refill(s), Pharmacy: [facility] 52 benzonatate 150 150 mg = 1 No Longer MH mg oral capsule cap, PO, Active 019 Medical TID, # 30 Group cap, 1 Refill(s), Pharmacy: [facility] 52 {21 See Active MH (Methylprednisol Instruction 019 Med ical one 4 MG Oral s, PO, Take Group Tablet [Medrol]) by mouth as } Pack [Medrol directed on Dosepak] label., X 6 day, # 1 Pack, 0 Refill(s), Pharmacy: [facility] 52 montelukast 10 10 mg = [...] Comments Britt rce influenza virus 09/14/2019 completed [facility] Medical vaccine, History: heb Group inactivated<sup>1 [...] Type Number For Provider Date Date Visit [facility] Office [id number] [facility] 10/24 10/24 [facility] Visit [address] Kendall /2013 Medic al Medical Group [facility] Outpatient [id number] BRAYAN 08/29 [facility] [place] [facility] [id number] Brayan 07/25 [facility] Kendall [place] [facility]patient [id number] [facility] 07/25 [facility] Kendall [facility] Outpatient [id number] [facility] 07/25 07/26 [facility] [id number] Nadya 07/25 07/25 [facility] Pre-Reg e [place] [facility] [place] [facility] [id number] Brayan 08/15 [facility] [id number] [facility] 08/15 08/16 [facility] [place] [facility] [id number] Fiona 08/29 [facility] [id number] Finoa 08/29 08/29 [facility] Pre-Reg [facility] [place] Outpatient [id number] Fiona 09/02 [facility] Gloria [facility] Outpatient [id number] Fiona 09/02 09/03 [facility] Phone [phone] 09/07 09/09 [facility] Message Medical [facility] [place] [facility] [id number] Fiona 11/28 [facility] [id number] Fiona 11/28 11/29 [facility] Gloria /2019 Medical Medicine Group [facility] Phone [phone] 11/29 12/01 [facility] Message [facility] [place] Procedures Procedure Code Date Perfomer Comments Source Arthrocentesis, 11/28/2019 Medica l aspiration and/or Group injection, major joint or bursa (eg, shoulder, hip, knee, subacromial bursa); without ultrasound guidance Bilateral [id number] Medical blepharoplasty of Group upper eyelids Eyebrow and/or [id number] Medical eyelid operations Group TL - Tubal ligation [id number] [facility] dical Group Assessment and Plan No [...]
--- OUTSIDE RECORDS SUMMARY | 2020-07-11 10:00 | XMS REPORT | Continuity of Care Document ---
:1945 Author Organization [facility] t Address [address] [place] [address] Care Team Providers Name Role Phone Sujey LUNDBERG, Darren Attending Clinician Edilberto Castro Attending Clinician Gilbert Attending Clinician Jeremy Etienne Attending Clinician Problems Condition Condition Condition Status Onset Resolution Last Treating Co mments Source Name Details Category Date Date Treatment Clinician Date TONSILLITI Condition Active 2013-112014-10-24 Memoria S, ACUTE 12-25 07:10:50 l 00:00: Edwin TONSILLITI 00 S, ACUTE Active 10/24/2014 Condition 4 Medical Group Allergic Problem Active 2019-12-03 Mem oria rhinitis 3-06 00:52:49 l (disorder) Allergic 00:00: He rmann rhinitis 00 (disorder) Active 01/19/2014 Problem 12/03/2019 Data migrated from [employer] on 04/14/15. Medical Group ALLERGIC Condition Active 2014-10-24 M emoria RHINITIS 3-06 07:10:50 l CAUSE ALLERGIC 00:00: Noha n UNSPECIFIE RHINITIS 00 D CAUSE UNSPECIFIE D Active 01/19/2014 Condition 4 Medical Group Allergies, Adverse Reactions, Alerts Allergy Allergy Status Severity Reaction(s) Onset Inactive Treating Comm ents Source Name Type Date Date Clinician No Known No Known Active Memori a Medicati Medicati l on on Edwin Allergcheikh tapia s Social History Social Habit Start Date Stop Date Quantity Comments Source Social History 2016-02-07 2016-02-07 [facility] 12:49:35 12:49:35 Medications Ordered Filled Start Stop Current Ordering Indication Dosage Frequency Signature Comments Components Source Medication Medication Date Date Medication? Clinician (SIG) Name Name Dexamethaso 2019- Yes 8 mg, Memor ia ne 11-28 Route: l 21:41: intra-MIRIAM Edwin 00 CULAR, ONCE, Dosing Weight 70.455, kg, Priority: Routine, Start date: 11/28/19 15:41:00 COTTON BALER, Stop date: 11/28/19 15:41:00 COTTON BALER enalapril 2018-11 Yes 10 mg = 1 Mem oria 10 mg oral 0-23 tab, PO, l tablet 16:40: Daily, Edwin 00 Patient takes this in addition to 20mg tablet to =30mg per day., # 90 tab, 3 Refill(s), Pharmacy: [facility] enalapril 2018-11 Yes 20 mg = 1 Mem oria 20 mg oral 0-18 tab, PO, l tablet 14:30: Daily, # Edwin 00 90 tab, 3 Refill(s), Pharmacy: [facility] benzonatate Yes 100 mg = 1 Memoria 100 mg oral 9-30 cap, PO, l capsule 19:35: TID, do [place] 00 not crush or chew, X 10 day, # 30 cap, 1 Refill(s), Pharmacy: [facility] triamcinolo No 60 mg, Mahendra michelle ne 08-15 Route: IM, l ACETONIDE 12:51: ONCE, [place] 40 mg/mL 00 Dosing injectable Weight suspension 67.273, kg, Start date: 08/15/19 7:51:00 CDT, Stop date: 08/15/19 7:51:00 CDT Azithromyci Yes See Memori a n 5 Day 08-15 Instructio l Dose Pack 12:47: ns, Take 2 He rmann 250 mg oral 00 tablets by tablet mouth the first day then 1 tablet by mouth days 2-5., X 5 day, # 6 tab, 0 Refill(s), Pharmacy: [facility] benzonatate No 150 mg = 1 Memoria 150 mg oral 9-30 cap, PO, l capsule 12:47: TID, # 30 Hanane nn 00 cap, 1 Refill(s), Pharmacy: [facility] 5246 { Yes See Memoria (Methylpred 07-25 Instructio l nisolone 4 13:59: ns, PO, Herm melvina MG Oral 00 Take by Tablet mouth as [Medrol]) } directed Pack on label., [Medrol X 6 day, # Dosepak] 1 Pack, 0 Refill(s), Pharmacy: [facility] 5246 montelukast Yes 10 mg = 1 M emoria 10 mg oral 07-25 tab, PO, l tablet 13:47: Bedtime, # Hanane nn 00 90 tab, 0 Refill(s) CEPHALEXIN 2013-11 Yes 1 po tid Mem oria 500 MG CAPS 09 l 00:00: [place] 00 LISINOPRIL Yes qd Memoria 10 MG TABS 3-06 l 00:00: [place] NASONEX 50 Yes 1 spray Mahendra michelle MCG/ACT 306 each l SUSP 00:00: nostril q [place] 00 day ALA-HIST PE Yes 1 Q 6 HRS M emoria 2-10 MG 06 PRN l TABS 00:00: [place] 00 Vital Signs Vital Name Observation Time Observation Value Comments Source Systolic (mm Hg) 2019-11-28 21:06:00 Mahendra rial Edwin Diastolic (mm Hg) 2019-11-28 21:06:00 Mem orial [place] Heart Rate 2019-11-28 21:06:00 [facility] [place] Temperature Oral (F) 2019-11-28 21:06:00 [facility] 2019-11-28 21[facility]06:00 [facility] Height 2019-09-02 14:13:00 167.64 cm [facility] Weight 2019-09-02 14:13:00 [facility] BMI Calculated 2019-09-02 14:13:00 Memori al [place] Systolic (mm Hg) 2019-09-02 14:13:00 Mahendra rial Edwin Diastolic (mm Hg) 2019-09-02 14:13:00 [facility] orial Edwin Heart Rate 2019-09-02 14:13:00 [facility] Temperature Oral (F) 2019-09-02 14:13:00 98.0 F [facility] Edwin Systolic (mm Hg) 2019-08-15 12:34:00 Mahendra rial Edwin Diastolic (mm Hg) 2019-08-15 12:34:00 Mem orial [place] Heart Rate 2019-08-15 12:34:00 [facility] Edwin Temperature Oral (F) 2019-08-15 12:34:00 98.5 F [facility] Edwin Height 2019-08-15 12:34:00 167.64 cm [facility] Edwin Weight 2019-08-15 12:34:00 [facility] [place] BMI Calculated 2019-08-15 12:34:00 Memori al [place] Systolic (mm Hg) 2019-07-25 13:43:00 Mahendra rial Edwin Diastolic (mm Hg) 2019-07-25 13:43:00 Mem orial Edwin Heart Rate 2019-07-25 13:43:00 [facility] Edwin Temperature Oral (F) 2019-07-25 13:43:00 98.1 F [facility] Edwin Height 2019-07-25 13:43:00 167.64 cm [facility] Edwin Weight 2019-07-25 13:43:00 [facility] Edwin BMI Calculated 2019-07-25 13:43:00 Memori al Edwin Weight 2014-10-24 13:10:50 [facility] [place] Temperature Oral (F) 2014-10-24 13:10:50 98.1 F [facility] Edwin Systolic (mm Hg) 2014-10-24 13:10:50 Mahendra rial [place] Diastolic (mm Hg) 2014-10-24 13:10:50 Mem orial Edwin Heart Rate 2014-10-24 13:10:50 [facility] Edwin Respitory Rate 2014-10-24 13:10:50 Memori al Edwin Weight 2014-01-19 13:46:53 [facility] [place] Height 2014-01-19 13:46:53 [facility] Edwin Systolic (mm Hg) 2014-01-19 13:46:53 Mahendra rial [place] Diastolic (mm Hg) 2014-01-19 13:46:53 Mem orial Edwin Temperature Oral (F) 2014-01-19 13:46:53 98.5 F [facility] Edwin Procedures Procedure Date / Time Performed Performing Clinician [facility] e Arthrocentesis, aspiration 2019-11-28 21:35:00 M emorial [place] and/or injection, major joint or bursa (eg, shoulder, hip, knee, subacromial bursa); without ultrasound guidance Bilateral blepharoplasty Kelsea Pineda of upper eyelids Eyebrow and/or eyelid [facility] ermann operations TL - Tubal ligation [facility] Encounters Start End Encounter Admission Attending Care Care Encounter Source Date/Time Date/Time Type Type Clinicians Facility Department ID 2020-06-19 2020-06-19 Office Sujey ALZAINA [id number] 08:33:02 10:02:22 Visit Israel Rajan [id number] [place] [id number] [id number] nal 092 [facility] 2019-11-29 2019-11-30 Outpatient [facility] [id number] 10:45:12 23:59:59 2019-11-28 2019-11-28 Outpatient Gloria, [facility] [id number] 15:15:00 23:59:59 Fiona Anderson [facility] 2019-09-07 2019-09-08 Outpatient [facility] [id number] 08:20:57 23:59:59 2019-09-02 2019-09-02 Outpatient Gloria, [facility] [id number] 09:00:00 23:59:59 Fiona Saunders [facility] 2019-08-29 2019-08-29 Outpatient Gloria, [facility] [id number] 16:15:00 16:15:00 [facility] 2019-08-15 2019-08-15 Outpatient Hunt, [facility] [id number] 07:45:00 23:59:59 Brayan 2019-07-25 2019-07-25 Outpatient [place], [facility] [id number] 08:45:00 23:59:59 Brayan 2019-07-25 2019-07-25 Outpatient [place], [facility] [id number] 11:15:00 11:15:00 [place] 02 ne [place] Results This patient has no known results.
[2020-07-11 10:01] LABS: Potassium 4.3 mmol/L (3.5-5.1)
--- OUTSIDE RECORDS SUMMARY | 2020-07-11 10:01 | XMS REPORT | Summary of Care ---
:1945 Author Organization [facility] Address [address] [place] [address] Care Team Providers Name Role Phone Reji Kay Shawn Primary Care Provider Reason for Visit Reason Comments New Patient STROKE Encounter Details Date Type Department Care Team Description 06/19/2020 Office Visit [facility] Israel Rm Cerebrovascu lar accident (CVA) due to thrombosis of left anterior cerebral artery (Primary Dx); Neurology-Satinder Banks MD Generalized anxiety disorder; [address] [place] [address] Essential hypertension [facility], [address] [place] [phone] Allergies No Known Allergiesdocumented as of this encounter (statuses as of 06/25/2020) Medications Medication Sig Dispensed Refills Start Date End Date Status mirtazapine 7.5 mg Take 1 tablet by 30 tablet 1 06/19/2020 Active tabletIndications: mouth at bedtime. Generalized anxiety disorder documented as of this encounter (statuses as of 06/25/2020) Active Problems Not on filedocumented as of this encounter (statuses as of 06/25/2020) Social History Tobacco Use Types Packs/Day Years Used Date Never Assessed Sex Assigned at Date Recorded Not on file COVID-19 Exposure Response Date Recorded In the last month, have you been in contact with No / Unsure 06/19/2020 8:57 AM CDT someone who was confirmed or suspected to have Coronavirus / COVID-19? documented as of this encounter Last Filed Vital Signs Vital Sign Reading Time Taken Comments Blood Pressure 134/81 06/19/2020 8:58 AM CDT Pulse 71 06/19/2020 8:58 AM CDT Temperature 36.4 C (97.6 F) 06/19/2020 8:58 AM CDT Respiratory Rate 18 06/19/2020 8:58 AM CDT Oxygen Saturation - - Inhaled Oxygen Concentration - - Weight 66.5 kg (146 lb 9.6 oz) 06/19/2020 8:58 AM CDT Height - - Body Mass Index - - documented in this encounter Progress Notes Israel Rm MD - 06/19/2020 8:40 AM CDT Missy Palacios is a 75 year old female. Chief complaint: recent stroke, anxiety. History: The patient is 75 years old, and she had been hospitalized at an outside hospital, there was a question of a very small left frontal lobe infarction. She had been in the store on 06/12 and she was shopping when she had noticed that she was dragging her right leg, there had been some paresthesias in her hands, and apparently there was some facial asymmetry as well. She had been taken to the emergency room, and she had been placed on aspirin. MRI study had been ordered, and I believe there were some other studies ordered like echo and Doppler according to the description that I did receive from the patient. She has recovered from her deficits, and [facility] much [facility]. She has been under a lot of stress lately because her has significant dementia, and he needed to be placed in a halfway recently. He has been calling her at home, he has been wanting her to take him out of the halfway. The patientdoes have a history of hypertension, there is also a significant history of anxiety throughout her life. Review of Systems: Cardiac - patient complains of: hypertension. Patient denies: chest pain, short of breath, easy fatigue, murmur, arrhythmia, swelling of legs. Respiratory - patient denies: cough, sputum production, wheezing, night sweats, insomnia. Gastric - patient denies: nausea, vomiting, poor appetite, blood in stool, difficult swallow, diarrhea. Urinary - patient denies: pain with urination, blood with urination, incontinence, difficulty urinating. Skin - patient denies: discoloration, itching, ulcers, change in hair or nails, skin breakdown. Heme/Immunology - patient denies: easy bruising, abnormal lymph nodes, anemia, Lupus, malignancy, immune system disease. HEENT - patient denies: ringing of ears, loss of hearing, nose bleeds, sinus pain, hoarseness, soresin mouth, facial pain. Neurology - patient complains of: unstable walking, change in speech. Patient denies: dizziness, tremor, seizures, fainting spells, loss of memory. Endocrine - patient denies: hot cold intolerance, excessive urination, increased thirst, increase sweating, goiter, abnormal blood sugar, weight change, adrenal diseases. Psych - patient complains of: depression, anxiety. Patient denies: disorientation, mood disorder, psychosis, delusions, dec contact with reality. Eyes - patient denies: change in vision, eye pain, double vision, blurred vision, eyelid droop. Musculoskeletal - patient complains of: muscle pain, back pain, neck pain, swelling of joints. Patient denies: pain in joints, swelling of the hands. Past Medical History: Hypertension, elevated cholesterol, osteoarthritis. Allergies: No medication allergies. Family History: Mother suffered with Alzheimers disease, father had MS. Sister with parkinsonism. Surgeries: Tubal ligation. Social history: Patient does not smoke, she is . Does not use significant amounts of alcohol. 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 Cranial nerves (vision, eye movement): EOM intact, equal reactive pupils, accommodation reflex present, full visual overton. Cranial nerves (V,VII): LT/sharp face sense intact, Frontalis intact, NL buccinators, obiculi occuli/oralis NL. Cranial nerves (taste, smell): taste intact by history, smell intact by history. Cranial nerve (VIII): normal conversational hearing, neves's midline, LUCIE intact finger rub. Cranial nerve (X,XII): tongue bulk normal, tongue midline, palate centered. Cranial nerve (accessory): normal r/l sternomastoid bulk/tone/power , shoulder shrug r/l equal. Peripheral motor: normal LUCIE arm strength, normal LUCIE leg power, R/L arm bulk intact, leg bulk normal LUCIE, Lucie UE intact tone, LE nl tone lucie. Reflexes: RT side reflexes 2 +, LT side reflexes 2 +, toes downgoing. Peripheral sensation: primary LUCIE (LT/Sharp/Vib) sense nl, Lucie position sense present. Coordination: FTN normal LUCIE, HTS LUCIE intact, finger tap LUCIE normal, LUCIE RAH symmetrical. Gait: gait normal, arm swing intact, romberg negative. HEENT: HEENT A/N, no oropharyngeal lesion present, JVD absent, thyromegaly absent, no lymphadenopathy present. Lungs: lungs clear, no wheezing, no rhonchi. Heart: CV RRR, no murmurs, carotid bruits absent. Peripheral vascular: no peripheral cyanosis, clubbing absent, no peripheral edema present, intact peripheral pulses, extremities warm to touch, absent LUCIE foot ulcers. Musculoskeletal: normal cervical ROM, cervical pain with palpation. ICD-10-CM ICD-9-CM 1. Cerebrovascular accident (CVA) due to thrombosis of left anterior cerebral artery I63.322 434.01 2. Generalized anxiety disorder F41.1 300.02 3. Essential hypertension I10 401.9 Impression: It is clear that the patient is probably suffering with her anxiety and there may be also a component of depression. She might benefit from the use of a medication like Remeron and so the risks and benefits of this medication had been discussed. Additionally, she will continue on the aspirin per day in reference to the issue of stroke. She does understand that all of this anxiety no doubtcontributed to her suffering the small stroke. The office visit did last 60 minutes and 33 of the minutes was spent discussing stroke risk factors and also prevention. In addition Im going to have to call for the old records to make sure that her workup was indeed completed. The imaging study had been reported out and I did not have any objections to that report from my review. Creation of the note was aided by utilizing a cut/paste operation of text from a Microsoft Word template created with [employer]. The text was dictated into the template via Dragon Naturally Speaking. Clary Nelson - 06/19/2020 8:40 AM Davon Palacios is a 75 year old female comes to clinic independent in ambulation for new patient stroke. Pt comes accompanied by daugter . Pt in NAD w/ pain reported 0/10. Pt preferred language is Colombian. Pt. denies fall in last 12 months. Allergies and medications reviewed and updated. [id number] [place], [place] - [facility] [address] 06/19/2020 9:01 AM documented in this encounter Plan of Treatment Health Maintenance Due Date Last Done Comments Depression Screening 1957 DTaP,Tdap,and Td Vaccines (1 - Tdap) 1962 Zoster Recombinant Vaccine (SHINGRIX) (1 of 2) 1993 Medicare Wellness Visit 2008 Osteoporosis Screening 2008 PNEUMOCOCCAL VACCINES 65+ (1 of 1 - PPSV23) 2008 INFLUENZA VACCINE (#1) 2020 documented as of this encounter Results Not on filedocumented in this encounter Visit Diagnoses Diagnosis Cerebrovascular accident (CVA) due to th rombosis of left anterior cerebral artery - Primary Generalized anxiety disorder Essential hypertension Unspecified essential hypertension documented in this encounter Insurance Payer Benefit Plan Subscriber ID Effective Dates Phone Address Type / Group HUMANA - HUMANA CHOICE [id number] 2018-[facility] Medicare Adv MANAGED t PPO MEDICARE documented as of this encounter"
--- OUTSIDE RECORDS SUMMARY | 2020-07-11 10:01 | XMS REPORT | Summary of Care ---
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 She has been under a lot of stress lately because her has significant dementia, and he needed to be [facility] a [facility]. He has been calling her at home, he has been wanting her to take him out of the penitentiary. The patientdoes have a history of hypertension, [...] during the exam, attention and concentration normal, staging technician and expression intact, fund of information normal, [...] from a Microsoft Word template created with [employer]. The text was dictated into the template via Dragon Naturally Speaking. Clary Nelson - 06/19/2020 8:40 AM Davon Palacios is a 75 year old female comes to clinic independent in ambulation for new patient stroke. Pt comes accompanied by daugter . Pt in NAD w/ pain reported 0/10. Pt preferred language is Yemeni. Pt. denies fall in last 12 months. Allergies and medications reviewed and updated. [id number] [place], [place] - [facility] [address] 06/19/2020 9:01 [...] Type / Group HUMANA - HUMANA CHOICE [id number] 2018-[facility] Medicare Adv MANAGED t PPO MEDICARE documented as of this encounter"
--- OUTSIDE RECORDS SUMMARY | 2020-07-11 10:01 | XMS REPORT | Summary of Care ---
:1945 Author Organization [facility] [[email or web address]] - Health Address [address] [place] [address] Care Team Providers Name Role Phone Reji Kay Shawn Primary Care Provider Encounter Details Date Type Department Care Team Description 06/19/2020 Orders Only [facility] [[email or web address]] Doctor Unassigned, No [address] [facility] [place] [address] [address] [place] [address] Allergies Not on Filedocumented as of this encounter (statuses as of 06/19/2020) Medications Not on filedocumented as of this encounter (statuses as of 06/19/2020) Active Problems Not on filedocumented as of this encounter (statuses as of 06/19/2020) Social History Tobacco Use Types Packs/Day Years Used Date Never Assessed Sex Assigned at Date Recorded Not on file documented as of this encounter Last Filed Vital Signs Not on filedocumented in this encounter Plan of Treatment Date Type Specialty Care Team Description 06/19/2020 Office Visit Neurology Israel Rm MD [address] [place] [address]. [place], [place] [phone] Health Maintenance Due Date Last Done Comments Depression Screening 1955 DTaP,Tdap,and Td Vaccines (1 - Tdap) 1962 Zoster Recombinant Vaccine (SHINGRIX) (1 of 2) 1993 Medicare Wellness Visit 2008 Osteoporosis Screening 2008 PNEUMOCOCCAL VACCINES 65+ (1 of 1 - PPSV23) 2008 INFLUENZA VACCINE (#1) 2020 documented as of this encounter Procedures Procedure Name Priority Date/Time Associated Diagnosis Comme nts ASSIGNMENT OF BENEFITS Routine 06/19/2020 8:32 AM CDT documented in this encounter Results Not on filedocumented in this encounter Insurance Payer Benefit Plan Subscriber ID Effective Dates Phone Address Type / Group HUMANA - HUMANA CHOICE [id number] 2018-[employer] Medicare Adv MANAGED t O MEDICARE documented as of this encounter
--- NOTE | 2020-07-11 10:08 | RAD REPORT ---
EXAM DESCRIPTION: CT - Ct Stroke Brain Wo Cont - 07/11/2020 9:36 am CLINICAL HISTORY: aphasia/right-sided weakness COMPARISON: Ct Stroke Brain Wo Cont dated 06/12/2020 TECHNIQUE: Axial 5 millimeter thick images of the head were obtained without IV contrast. All CT scans are performed using dose optimization technique as appropriate and may include automated exposure control or mA/KV adjustment according to patient size. FINDINGS: No intracranial hemorrhage, mass, or cerebral edema. No acute cortical based infarction id entified. No cortical edema or sulcal effacement. Mild atrophy changes are present. Ventricles are in proportion to volume loss. No extra-axial fluid collections. [place] matter-white matter differentiati on is preserved.Patient has significant chronic ischemic change throughout the cerebral white matter. This extends into each basal ganglia. A 3 millimeter lacunar infarct or perivascular space noted on the left. Arterial and physiologic calcifications are present. Intracranial findings are all similar to the June 12 study. Visualized portions of the mastoid air cells, paranasal sinuses, and orbits are unremarkable. Images were initially available in the exception folder. Images were reviewed without benefit of amador starks. Findings were telephoned to the referring physician 9:32 a.m.. IMPRESSION: No intracranial hemorrhage. Patient has prominent chronic ischemic change throughout the cerebral white matter. Basal ganglia chr onic ischemic change also present. Chronic ischemic changes can mask nonhemorrhagic acute infarction. MR brain followup can be obtained if there is ongoing concern for acute ischemia.
--- NOTE | 2020-07-11 10:35 | RAD REPORT ---
EXAM DESCRIPTION: RAD - Chest Single View - 07/11/2020 9:55 am CLINICAL HISTORY: [facility] [place], Stroke protocol chest film COMPARISON: Portable June 12 TECHNIQUE: AP portable chest image was obtained 07/11/2020 9:55 am . FINDINGS: Scattered fibrotic lung changes are present. Interstitial pattern is stable. Calcified gra nuloma seen in the mid right lung field. No failure or volume overload. Heart and vasculature are nor mal. No measurable pleural effusion and no pneumothorax. No acute bony abnormality seen. No acute aor tic findings suspected. IMPRESSION: No acute cardiopulmonary process. No significant change from comparison.
[2020-07-11] MEDS ORDERED: CLOPIDOGREL 75 MG TABLET ONE (10:42)
[2020-07-11] MEDS ORDERED: FOLIC ACID 5 MG/ML VIAL ONE (10:43)
--- NOTE | 2020-07-11 11:21 | EDPHYS ---
Physician Documentation [facility] Name: Missy Palacios Age: 75 yrs Sex: Female : 1945 Arrival Date: 07/11/2020 Time: 09:28 Bed 4 Private MD: ED Physician Barrington Chapman HPI: 07/11 09:41 This 75 yrs old Female presents to ER via Unassigned with complaints of rn possible stroke. 09:41 The patient presents to the emergency department with weakness of the right lower rn extremity, a speech or higher order brain function problem, aphasia, difficult walking. Onset: The symptoms/episode began/occurred today. Severity of symptoms: At their worst the symptoms were moderate in the emergency department the symptoms have improved. The patient has experienced similar episodes in the past. Patient states woke up around 0437 with numbness and weakness of RLE, one daughter states called her around 6 something in the morning and noticed difficulty with speech, another daughter visited her around 0800 and confirmed speech problem as well and dragging right foot, which were presenting symptoms a few weeks ago. Now patient states feels back to normal and much better. . Historical: - Allergies: 09:55 No Known Allergies; ph - Home Meds: 09:55 enalapril maleate 40 mg Oral tab 1 tab once daily [Active]; Aspirin Oral [Active]; ph - PMHx: 09:55 Hypertension; CVA; High Cholesterol; ph - Immunization history:: Adult Immunizations unknown. - Family history:: not pertinent. - Social history:: Smoking status: Patient denies any tobacco usage or history of. - Hospitalizations: : The patient was recently seen at [facility]. ROS: 09:41 Constitutional: Negative for fever, chills, and weight loss, Eyes: Negative for injury, rn pain, redness, and discharge, Neck: Negative for injury, pain, and swelling, Cardiovascular: Negative for chest pain, palpitations, and edema, Respiratory: Negative for shortness of breath, cough, wheezing, and pleuritic chest pain, Abdomen/GI: Negative for abdominal pain, nausea, vomiting, diarrhea, and constipation, MS/Extremity: Negative for injury and deformity, Skin: Negative for injury, rash, and discoloration, Neuro: Negative for headache, and seizure. Exam: 09:41 Constitutional: This is a well developed, well nourished patient who is awake, alert, rn and in no acute distress. Head/Face: Normocephalic, atraumatic. Eyes: Pupils equal round and reactive to light, extra-ocular motions intact. Lids and lashes normal. Conjunctiva and sclera are non-icteric and not injected. Cornea within normal limits. Periorbital areas with no swelling, redness, or edema. Cardiovascular: Regular rate and rhythm. No pulse deficits. Respiratory: No increased work of breathing, no retractions or nasal flaring. Abdomen/GI: soft, non-tender MS/ Extremity: Pulses equal, no cyanosis. Neurovascular intact. Full, normal range of motion. Equal circumference. Neuro: Awake and alert, GCS 15, oriented to person, place, time, and situation. Cranial nerves II-XII grossly intact. Motor strength 5/5 in all extremities, no drift. Sensory grossly intact. 09:52 ECG was reviewed by the Attending Physician. rn Vital Signs: 09:50 BP 146 / 79; Pulse 53; Resp 18; Temp 97.5; Pulse Ox 96% on R/A; Weight 66.22 kg; Height ph 5 ft. 6 in. (167.64 cm); Pain 0/10; 10:46 BP 144 / 74; Pulse 56; Resp 18; Pulse Ox 98% on R/A; Pain 0/10; ph 09:50 Body Mass Index 23.56 (66.22 kg, 167.64 cm) ph NIH Stroke Scale Scores: 09:40 NIHSS Score: 0 ph MDM: 09:29 Patient medically screened. rn 09:29 ED course: Pt went straight to CT without ability to evaluate her. . rn 09:39 ED course: Pt states feels much better now, feels like back to baseline. Previous MRI rn when admitted a few weeks ago showed acute micro infarct left frontal lobe, sent home on aspirin. Currently NIH 0, not TPA candidate due to symptoms resolving as well as confirmed stroke on MRI 3-4 weeks ago. . 09:44 ED course: Pt sure symptoms were first noticed at 0437, states looked at clock. . rn 10:26 ED course: Consulted with Rosa Moseley, states agrees with addition of plavix to her rn aspirin, does not feel any benefit from re-admission, can f/u in clinic given back to baseline. . 11:20 Data reviewed: vital signs, nurses notes, lab test result(s), EKG, radiologic studies, rn CT scan, and as a result, I will discharge patient. Counseling: I had a detailed discussion with the patient and/or guardian regarding: the historical points, exam findings, and any diagnostic results supporting the discharge/admit diagnosis, lab results, radiology results, the need for outpatient follow up, to return to the emergency department if symptoms worsen or persist or if there are any questions or concerns that arise at home. Response to treatment: the patient's condition has returned to base line, and as a result, I will discharge patient. ED course: Updated daughter regarding plan to discharge and start on plavix, good with plans, agrees, will dc home with pcp and neuro f/u. . 07/11 09:29 Order name: Basic Metabolic Panel; Complete Time: 10:07/11 09:29 Order name: CBC with Diff; Complete Time: 10:07/11 09:29 Order name: Protime (+inr); Complete Time: 10:07/11 09:29 Order name: Ptt, Activated; Complete Time: 10:07/11 09:29 Order name: CT Stroke Brain w/o Contrast; Complete Time: 10:45 07/11 09:51 Order name: Glucose, Ancillary Testing; Complete Time: 10:03 EDOK 07/11 09:29 Order name: Stroke CXR 1 View; Complete Time: 10:45 07/11 09:29 Order name: EKG; Complete Time: 09:07/11 09:29 Order name: Accucheck; Complete Time: 10:07/11 09:29 Order name: Cardiac monitoring; Complete Time: 10:07/11 09:29 Order name: EKG - Nurse/Tech; Complete Time: 10:07/11 09:29 Order name: IV Saline Lock; Complete Time: :07/11 09:29 Order name: Labs collected and sent; Complete Time: 10:07/11 09:29 Order name: NPO; Complete Time: 10:07/11 09:29 Order name: O2 Per Protocol; Complete Time: 10:07/11 09:29 Order name: O2 Sat Monitoring; Complete Time: 10:07/11 09:29 Order name: Stroke Swallow Screen; Complete Time: EC:52 Rate is 51 beats/min. Rhythm is regular. QRS [place] is Normal. [place] interval is normal. QRS rn interval is normal. QT interval is normal. No Q waves. T waves are Normal. No ST changes noted. Clinical impression: Sinus bradycardia. Interpreted by me. Reviewed by me. Administered Medications: 10:47 Drug: PlaVIX 75 mg Route: PO; ph 10:58 Follow up: Response: No adverse reaction ph 10:47 Drug: foLIC Acid 1 mg Route: IVPB; Site: left antecubital; ph 10:58 Follow up: Response: No adverse reaction; IV Status: Completed infusion ph Point of Care Testing: Blood Glucose: :40 Blood Glucose: 84 mg/dL; ph Ranges: Critical Glucose Levels:Adult <50 mg/dl or >400 mg/dl <40 mg/dl or >180 mg/dl Disposition: 07/11/20 11:21 Discharged to Home. Impression: Transient cerebral ischemic attack, unspecified. - Condition is Stable. - Discharge Instructions: Stroke Prevention, Transient Ischemic Attack. - Prescriptions for Plavix 75 mg Oral Tablet - take 1 tablet by ORAL route once daily; 60 tablet. - Medication Reconciliation Form, Thank You Letter, Antibiotic Education, Prescription Opioid Use form. - Follow up: Dov Moseley MD; When: 2 - 3 days; Reason: Recheck today's complaints, Re-evaluation by your physician. - Problem is new. - Symptoms have improved. NIH Stroke Scale - NIH Stroke Score Date: 07/11/2020 Time: 09:40 Total Score = 0 1a. Level of Consciousness (LOC) - 0(Alert) 1b. Level of Consciousness (LOC) (Year \T\ Age) - 0(Both) 1c. LOC Commands (Open \T\ Closes Eyes/Corporate Quality Manager) - 0(Both) 2. Best Gaze (Lateral Gaze Paresis) - 0(Normal) 3. Visual Field Loss - 0(No visual loss) 4. Facial Palsy - 0(Normal) 5a. Left Arm: Motor (10-second hold) - 0(No drift) 5b. Right Arm: Motor (10-second hold) - 0(No drift) 6a. Left Leg: Motor (5-second hold - always test supine) - 0(No drift) 6b. Right Leg: Motor (5-second hold - always test supine) - 0(No drift) 7. Limb Ataxia (finger/nose \T\ heel/varela - test with eyes open) - 0(Absent) 8. Sensory Loss (pinprick arms/legs/face) - 0(Normal) 9. Best Language: Aphasia (description/naming/reading) - 0(No aphasia) 10. Dysarthria (speech clarity - read or repeat words) - 0(Normal) 11. Extinction and Inattention (visual/tactile/auditory/spatial/personal) - 0(No abnormality) Initials: ph Signatures: Dispatcher [employer] EDBarrington Alvarado MD MD rn Calderon, Audri RN RN aa5 Manuela Angulo RN RN ph Corrections: (The following items were deleted from the chart) 11:47 11:21 07/11/2020 11:21 Discharged to Home. Impression: Transient cerebral ph ischemic attack, unspecified. Condition is Stable. Forms are Medication Reconciliation Form, Thank You Letter, Antibiotic Education, Prescription Opioid Use. Follow up: Dov Moseley; When: 2 - 3 days; Reason: Recheck today's complaints, Re-evaluation by your physician. Problem is new. Symptoms have improved. rn
--- NOTE | 2020-07-11 11:21 | ER ---
Nurse's Notes [facility] Name: Missy Palacios Age: 75 yrs Sex: Female : 1945 Arrival Date: 07/11/2020 Time: 09:28 Bed 4 Private MD: Diagnosis: Transient cerebral ischemic attack, unspecified Presentation: 07/11 09:40 Chief complaint: EMS states: EMS called for stroke like symptoms, family reports that ph they spoke w/ pt \T\ 0615 and was normal, daughter then went to pt's home \T\ 0800 and pt was found to be aphasic and dragging R leg. 09:40 No acute neurological deficit is noted. The patients blood glucose was checked before ph arriving to the hospital and was found to be normal. 09:50 Coronavirus screen: Client denies travel out of the [place] in the last 14 days. At this time, the client does not indicate any symptoms associated with coronavirus-19. Ebola Screen: No symptoms or risks identified at this time. Initial Sepsis Screen: Does the patient meet any 2 criteria? No. Patient's initial sepsis screen is negative. Does the patient have a suspected source of infection? No. Patient's initial sepsis screen is negative. Risk Assessment: Do you want to hurt yourself or someone else? Patient reports no desire to harm self or others. Onset of symptoms was July 11, 2020. 09:50 Method Of Arrival: EMS: [facility] 09:50 Acuity: SARBJIT 2 Triage Assessment: 09:40 The onset of the patients symptoms was July 11, 2020 at 04:30. Stroke Activation: Symtpom onset >3 hours and < 6 hours Physician: Stroke Attending; Name: ; Notified At: ; Arrived At: Physician: Chief Stroke Resident; Name: ; Notified At: ; Arrived At: Physician: Stroke Resident; Name: ; Notified At: ; Arrived At: Physician: ED Attending; Name: ; Notified At: ; Arrived At: Physician: ED Resident; Name: ; Notified At: ; Arrived At: Historical: - Allergies: 09:55 No Known Allergies; ph - Home Meds: :55 enalapril maleate 40 mg Oral tab 1 tab once daily [Active]; Aspirin Oral [Active]; ph - PMHx: 09:55 Hypertension; CVA; High Cholesterol; ph - Immunization history:: Adult Immunizations unknown. - Family history:: not pertinent. - Social history:: Smoking status: Patient denies any tobacco usage or history of. - Hospitalizations: : The patient was recently seen at [facility]. Screenin:54 Abuse screen: Denies threats or abuse. Denies injuries from another. Nutritional ph screening: No deficits noted. Tuberculosis screening: No symptoms or risk factors identified. Fall Risk None identified. Assessment: 09:28 Reassessment: Pt taken to CT accompanied by [facility] and me. aa5 09:40 Reassessment: Dr Chapman at bedside to assess pt, pt reports that symptoms began at 0430 ph this morning, reports that she awakened to numbness/weakness in R leg, states that symptoms have now improved, speech clear w/ no facial droop noted, lab at bedside for blood draw, BGL 84. 09:40 VAN Scoring: Arm Drift: Patients demonstrates NO arm weakness. Patient is VAN Negative. ph T-PA (Activase) Screening: Contraindications: Other: Symptoms have resolved, pt reports s/s onset approx 0430 am. General: Appears in no apparent distress. comfortable, well groomed, Behavior is calm, cooperative, appropriate for age. Pain: Denies pain. Neuro: Level of Consciousness is awake, alert, obeys commands, Oriented to person, place, time, situation, Plane Captain are equal bilaterally Moves all extremities. Full function Speech is normal, Facial symmetry appears normal, Facial symmetry: tongue is midline, Pupils are PERRLA, Intact. Cardiovascular: Denies chest pain, lightheadedness, nausea, shortness of breath, Capillary refill < 3 seconds in bilateral fingers Patient's skin is warm and dry. Rhythm is sinus bradycardia. Respiratory: Airway is patent Respiratory effort is even, unlabored, Respiratory pattern is regular, symmetrical. GI: No signs and/or symptoms were reported involving the gastrointestinal system. Derm: Skin is intact, Skin is pink, warm \T\ dry. Musculoskeletal: Circulation, motion, and sensation intact. Range of motion: intact in all extremities. 09:43 Reassessment: Xray at bedside. ph 09:47 Reassessment: Jackie WHEELER at bedside for EKG. ph 10:30 Patient has been NPO before screening. The patient is alert, and able to follow ph commands. The patient does not exhibit slurred or garbled speech. The patient is not exhibiting difficulty speaking. The patient does not exhibit difficulty understanding words. The patient is able to swallow own secretions with no drooling or need for suction. Patient tolerated one teaspoon of water. No drooling, immediate coughing, gurgling, or clearing of the throat was noted. The patient tolerated 90mL of water. No drooling, immediate coughing, gurgling, or clearing of the throat was noted. The patient passed the bedside swallow screening. Oral medications may be given as ordered. Contact Physician for further diet orders. Provider notified of bedside swallow screening results: Barrington Chapman MD. 10:46 Reassessment: Patient appears in no apparent distress at this time. Patient and/or ph family updated on plan of care and expected duration. Pain level reassessed. Patient is alert, oriented x 3, equal unlabored respirations, skin warm/dry/pink. Patient denies pain at this time. 11:36 Reassessment: Patient appears in no apparent distress at this time. Patient and/or ph family updated on plan of care and expected duration. Pain level reassessed. Patient is alert, oriented x 3, equal unlabored respirations, skin warm/dry/pink. Pt instructed to keep follow up appointment w/ neurologist, d/c home w/ daughter. Vital Signs: 09:50 BP 146 / 79; Pulse 53; Resp 18; Temp 97.5; Pulse Ox 96% on R/A; Weight 66.22 kg; Height ph 5 ft. 6 in. (167.64 cm); Pain 0/10; 10:46 BP 144 / 74; Pulse 56; Resp 18; Pulse Ox 98% on R/A; Pain 0/10; ph 09:50 Body Mass Index 23.56 (66.22 kg, 167.64 cm) ph NIH Stroke Scale Scores: 09:40 NIHSS Score: 0 ph ED Course: 09:28 Patient arrived in ED. aa5 09:29 Barrington Chapman MD is Attending Physician. rn 09:36 CT Stroke Brain w/o Contrast In Process Unspecified. EDMS 09:42 Maintain EMS IV. Dressing intact. Good blood return noted. Site clean \T\ dry. Gauge \T\ ph site: 18 LAC. 09:45 Angulo, Manuela, RN is Primary Nurse. ph 09:53 Triage completed. ph 09:53 Arm band placed on Patient placed in an exam room, on a stretcher, on director of veterans affairs, ph on pulse oximetry. 09:54 Patient has correct armband on for positive identification. Placed in gown. Bed in low ph position. Call light in reach. Side rails up X2. customer care coordinator on. Pulse ox on. NIBP on. Door closed. Noise minimized. Lights dimmed. Warm blanket given. 09:55 Stroke CXR 1 View In Process Unspecified. EDMS 11:21 Dov Moseley MD is Referral Physician. rn 11:38 No provider procedures requiring assistance completed. IV discontinued, intact, ph bleeding controlled, No redness/swelling at site. Pressure dressing applied. Administered Medications: 10:47 Drug: PlaVIX 75 mg Route: PO; ph 10:58 Follow up: Response: No adverse reaction ph 10:47 Drug: foLIC Acid 1 mg Route: IVPB; Site: left antecubital; ph 10:58 Follow up: Response: No adverse reaction; IV Status: Completed infusion ph Point of Care Testing: Blood Glucose: 09:40 Blood Glucose: 84 mg/dL; ph Ranges: Outcome: 11:21 Discharge ordered by MD. rn 11:38 Discharged to home via wheelchair. ph 11:38 Condition: good 11:38 Discharge instructions given to patient, Instructed on discharge instructions, follow up and referral plans. medication usage, Demonstrated understanding of instructions, follow-up care, medications, Prescriptions given X 1. 11:47 Patient left the ED. ph NIH Stroke Scale - NIH Stroke Score Date: 07/11/2020 Time: 09:40 Total Score = 0 1a. Level of Consciousness (LOC) - 0(Alert) 1b. Level of Consciousness (LOC) (Year \T\ Age) - 0(Both) 1c. LOC Commands (Open \T\ Closes Eyes/Container Washer Machine) - 0(Both) 2. Best Gaze (Lateral Gaze Paresis) - 0(Normal) 3. Visual Field Loss - 0(No visual loss) 4. Facial Palsy - 0(Normal) 5a. Left Arm: Motor (10-second hold) - 0(No drift) 5b. Right Arm: Motor (10-second hold) - 0(No drift) 6a. Left Leg: Motor (5-second hold - always test supine) - 0(No drift) 6b. Right Leg: Motor (5-second hold - always test supine) - 0(No drift) 7. Limb Ataxia (finger/nose \T\ heel/varela - test with eyes open) - 0(Absent) 8. Sensory Loss (pinprick arms/legs/face) - 0(Normal) 9. Best Language: Aphasia (description/naming/reading) - 0(No aphasia) 10. Dysarthria (speech clarity - read or repeat words) - 0(Normal) 11. Extinction and Inattention (visual/tactile/auditory/spatial/personal) - 0(No abnormality) Initials: ph Signatures: Dispatcher [employer] EDBarrington Alvarado MD MD rn Calderon, Audri, RN RN aa5 Manuela Angulo RN RN ph
[2020-07-16 09:32] VITALS: TEMP 97.5
[2020-07-16 09:33] VITALS: BP 144/74; O2SAT 98
== END 2020-07-11 11:47 | disposition home or self-care (01) ==
LOC: ER 09:28
DX: G45.9 Transient cerebral ischemic attack, unspecified (principal); I10 Essential (primary) hypertension; E78.00 Pure hypercholesterolemia, unspecified; Z86.73 Personal history of transient ischemic attack (TIA), and cerebral infarction without residual deficits; Z79.82 Long term (current) use of aspirin
CPT/HCPCS: 36415; 70450; 71045; 80048; 82947; 85025; 85610; 85730; 93005; 96374; 99284

== ENCOUNTER 2020-07-12 14:12 | Observation (INO) | payer OTHER ==
--- OUTSIDE RECORDS SUMMARY | 2020-07-12 14:14 | XMS REPORT | Continuity of Care Document ---
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 benzonatate 100 100 mg = 1 Active MH mg oral capsule cap, PO, 019 Medical TID, do not Group crush or chew, X 10 day, # 30 cap, 1 Refill(s), Pharmacy: [facility] 5246 triamcinolone 60 mg, Inactive ACETONIDE [...] day, # 6 tab, 0 Refill(s), Pharmacy: [facility] 52 benzonatate 150 150 mg = 1 No Longer MH mg oral capsule cap, PO, Active 019 Medical TID, # 30 Group cap, 1 Refill(s), Pharmacy: [facility] 52 {21 See Active MH (Methylprednisol Instruction 019 Med ical one 4 MG Oral s, PO, Take Group Tablet [Medrol]) by mouth as } Pack [Medrol directed on Dosepak] label., X 6 day, # 1 Pack, 0 Refill(s), Pharmacy: [facility] 52 montelukast 10 10 mg = [...] Comments Britt rce influenza virus 09/14/2019 completed [place] Location Medical vaccine, History: heb Group inactivated<sup>1 [...] Type Number For Provider Date Date Visit [facility] Office [id number] [facility] 10/24 10/24 [facility] Visit [address] Kendall /2013 [facility] al [facility] Outpatient [id number] BRAYAN 08/29 [facility] [place] Out[facility] [id number] Brayan 07/25 [facility] Outpatient [id number] [facility] 07/25 [facility] Outpatient [id number] [facility] 07/25 07/26 [facility] Ambulatory [id number] Nadya 07/25 07/25 [facility] Pre-Reg e [place] [facility] [place] Outpatient [id number] Brayan 08/15 [facility] [id number] [facility] 08/15 08/16 [facility] [place] Outpatient [id number] Fiona 08/29 [facility] [id number] Fiona 08/29 08/29 [facility] Pre-Reg [facility] [place] Outpatient [id number] Fiona 09/02 [facility] Outpatient [id number] Fiona 09/02 09/03 [facility] Phone [id number] 09/07 09/09 [facility] Message [facility] [place] Outpatient [id number] Fiona 11/28 [facility] [id number] Fiona 11/28 11/29 [facility] Gloria /2019 Medical Medicine Group [facility] Phone [id number] 11/29 12/01 [facility] Message [facility] [place] Procedures Procedure Code Date Perfomer Comments Source Arthrocentesis, 11/28/2019 Medica l aspiration and/or Group injection, major joint or bursa (eg, shoulder, hip, knee, subacromial bursa); without ultrasound guidance Bilateral [id number] Medical blepharoplasty of Group upper eyelids Eyebrow and/or [id number] Medical eyelid operations Group TL - Tubal ligation [id number] [facility] dical Group Assessment and Plan No [...]
--- OUTSIDE RECORDS SUMMARY | 2020-07-12 14:14 | XMS REPORT | Continuity of Care Document ---
:1945 Author Organization [facility] Address [address] [place] [address] Care Team Providers Name Role Phone Sujey [...] Active 01/19/2014 Problem 12/03/2019 Data migrated from [employer] on 04/14/15. [facility] ALLERGIC Condition Active 2014-10-24 M emoria RHINITIS 3-06 07:10:50 l CAUSE ALLERGIC 00:00: Noah n UNSPECIFIE RHINITIS 00 D CAUSE UNSPECIFIE D Active 01/19/2014 Condition 4 [facility] Allergies, Adverse Reactions, Alerts Allergy Allergy Status Severity Reaction(s) Onset Inactive Treating Comm ents Source Name Type Date Date Clinician No Known No Known Active Memori a Medicati Medicati l on on Edwin Allergcheikh Allergie s s Social History Social Habit Start Date Stop Date Quantity Comments Source Social History 2016-02-07 2016-02-07 [facility] 12:49:35 12:49:35 Medications Ordered Filled Start Stop Current Ordering Indication Dosage Frequency Signature Comments Components Source Medication Medication Date Date Medication? 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 benzonatate Yes 100 mg = 1 Memoria 100 mg oral 9-30 cap, PO, l capsule 19:35: TID, do [place] 00 not crush or chew, X 10 day, # 30 cap, 1 Refill(s), Pharmacy: [facility] triamcinolo No 60 mg, Mahendra michelle ne 08-15 Route: IM, l ACETONIDE 12:51: ONCE, Edwin 40 mg/mL 00 Dosing injectable Weight suspension [...] 6 tab, 0 Refill(s), Pharmacy: [facility] benzonatate No 150 mg = 1 Memoria 150 mg oral 9-30 cap, PO, l capsule 12:47: TID, # 30 Hanane nn 00 cap, 1 Refill(s), Pharmacy: [facility] [id number] { Yes See Memoria (Methylpred 07-25 Instructio l nisolone 4 13:59: ns, PO, Herm melvina MG Oral 00 Take by Tablet mouth as [Medrol]) } directed Pack on label., [Medrol X 6 day, # Dosepak] 1 Pack, 0 Refill(s), Pharmacy: [facility] [id number] montelukast Yes 10 mg = 1 M emoria 10 mg oral 07-25 tab, PO, l tablet 13:47: Bedtime, # Hanane nn 00 90 tab, 0 Refill(s) CEPHALEXIN 2013-11 Yes 1 po tid Mem oria 500 MG CAPS -09 l 00:00: [place] 00 LISINOPRIL Yes qd Memoria 10 MG TABS 06 l 00:00: [place] 00 NASONEX 50 Yes 1 spray Mahendra michelle MCG/ACT 306 each l SUSP 00:00: nostril q [place] 00 day ALA-HIST PE Yes 1 Q 6 HRS M emoria 2-10 MG -06 PRN l TABS 00:00: Edwin 00 Vital Signs Vital Name Observation Time Observation Value Comments Source Systolic (mm Hg) 2019-11-28 21:06:00 Mahendra rial Edwin Diastolic (mm Hg) 2019-11-28 21:06:00 Mem orial Edwin Heart Rate 2019-11-28 21:06:00 [facility] Temperature Oral (F) 2019-11-28 21:06:00 97.7 F [facility] Weight 2019-11-28 21:06:00 [facility] [place] Height 2019-09-02 14:13:00 167.64 cm [facility] Weight 2019-09-02 14:13:00 [facility] [place] BMI Calculated 2019-09-02 14:13:00 Memori al [place] Systolic (mm Hg) 2019-09-02 14:13:00 Mahendra rial [place] Diastolic (mm Hg) 2019-09-02 14:13:00 Mem orial Edwin Heart Rate 2019-09-02 14:13:00 [facility] Temperature Oral (F) 2019-09-02 14:13:00 98.0 F [facility] Systolic (mm Hg) 2019-08-15 12:34:00 Mahendra rial Edwin Diastolic (mm Hg) 2019-08-15 12:34:00 Mem orial [place] Heart Rate 2019-08-15 12:34:00 [facility] Temperature Oral (F) 2019-08-15 12:34:00 98.5 F [facility] [place] Height 2019-08-15 12:34:00 167.64 cm [facility] Weight 2019-08-15 12:34:00 [facility] BMI Calculated 2019-08-15 12:34:00 Memori al [place] Systolic (mm Hg) 2019-07-25 13:43:00 Mahendra rial Edwin Diastolic (mm Hg) 2019-07-25 13:43:00 Mem orial Edwin Heart Rate 2019-07-25 13:43:00 [facility] [place] Temperature Oral (F) 2019-07-25 13:43:00 98.1 F [facility] [place] Height 2019-07-25 13:43:00 167.64 cm [facility] Weight 2019-07-25 13:43:00 [facility] [place] BMI Calculated 2019-07-25 13:43:00 Memori al Edwin Weight 2014-10-24 13:10:50 [facility] Temperature Oral (F) 2014-10-24 13:10:50 98.1 F [facility] Systolic (mm Hg) 2014-10-24 13:10:50 Mahendra rial Edwin Diastolic (mm Hg) 2014-10-24 13:10:50 Mem orial Edwin Heart Rate 2014-10-24 13:10:50 [facility] Respitory Rate 2014-10-24 13:10:50 Memori al [place] Weight 2014-01-19 13:46:53 [facility] Height 2014-01-19 13:46:53 [facility] Systolic (mm Hg) 2014-01-19 13:46:53 Mahendra rial Edwin Diastolic (mm Hg) 2014-01-19 13:46:53 Mem orial Edwin Temperature Oral (F) 2014-01-19 13:46:53 98.5 F [facility] [place] Procedures Procedure Date / Time Performed Performing Clinician Sourc e Arthrocentesis, aspiration 2019-11-28 21:35:00 [facility] and/or injection, major joint or bursa (eg, shoulder, hip, knee, subacromial bursa); without ultrasound guidance Bilateral blepharoplasty Kelsea Pineda of upper eyelids Eyebrow and/or eyelid [facility] ermann operations TL - Tubal ligation [facility] Encounters Start End Encounter Admission Attending Care Care Encounter Source Date/Time Date/Time Type Type Clinicians Facility Department ID 2020-06-19 2020-06-19 Office Sujey [facility] [id number] 08:33:02 10:02:22 Visit Israel Darren Rajan [id number] [place] [id number] Yuriio [id number] nal 092 [facility] 2019-11-29 2019-11-30 Outpatient [facility] [id number] 10:45:12 23:59:59 2019-11-28 2019-11-28 Outpatient Gloria, [facility] [id number] 15:15:00 23:59:59 Fiona Anderson [facility] 2019-09-07 2019-09-08 Outpatient [facility] [id number] 08:20:57 23:59:59 2019-09-02 2019-09-02 Outpatient Gloria, [facility] [id number] 09:00:00 23:59:59 Fiona Saunders [facility] 2019-08-29 2019-08-29 Outpatient Gloria, [facility] [id number] 16:15:00 16:15:00 Fiona Finley [facility] 2019-08-15 2019-08-15 Outpatient Hunt, [facility] [id number] 07:45:00 23:59:59 Brayan 05 2019-07-25 2019-07-25 Outpatient Hunt, [facility] [id number] 08:45:00 23:59:59 Brayan 2019-07-25 2019-07-25 Outpatient Jaimie, [facility] [id number] 11:15:00 11:15:00 [place] 02 mn Ugbarber Results This patient has no known results.
--- NOTE | 2020-07-12 15:27 | RAD REPORT ---
EXAM DESCRIPTION: CT - Head Brain Wo Cont - 07/12/2020 3:17 pm CLINICAL HISTORY: APHASIA Headache, drowsiness CVA symptomology COMPARISON: Head angio dated 07/12/2020; Ct Stroke Brain Wo Cont dated 07/11/2020 TECHNIQUE: All CT scans are performed using dose optimization technique as appropriate and may inclu de automated exposure control or mA/KV adjustment according to patient size. FINDINGS: No intracranial hemorrhage, hydrocephalus or extra-axial fluid collection.Moderate periven tricular and deep white microvascular ischemic changesNo areas of brain edema or evidence of midline shift. The paranasal sinuses and mastoids are clear. The calvarium is intact. IMPRESSION: No acute intracranial abnormality.
--- NOTE | 2020-07-12 15:29 | RAD REPORT ---
EXAM DESCRIPTION: CT - Head angio - 07/12/2020 3:17 pm CLINICAL HISTORY: TIA Headache, drowsiness, CVA symptomology COMPARISON: Ct Stroke Brain Wo Cont dated 07/11/2020; Ct Stroke Brain Wo Cont dated 06/12/2020 TECHNIQUE: CT angiography of the head was performed with MIPs. All CT scans are performed using dose optimization technique as appropriate and may include automated exposure control or mA/KV adjustment according to patient size. FINDINGS: No evidence of aneurysm is detected. No flow-limiting stenosis or vascular malformation id entified. Antegrade flow is seen in the vertebral arteries. The vertebral arteries are patent, left-sided domin ant. The visualized dural venous sinuses are patent. IMPRESSION: No significant flow abnormality is detected.
--- NOTE | 2020-07-12 15:31 | RAD REPORT ---
EXAM DESCRIPTION: CT - Neck Angio - 07/12/2020 3:17 pm CLINICAL HISTORY: aphasia, TIA Headache, drowsiness, CVA symptomology COMPARISON: No comparisons TECHNIQUE: CT angiography of the neck vessels was performed with MIPs. All CT scans are performed using dose optimization technique as appropriate and may include automated exposure control or mA/KV adjustment according to patient size. FINDINGS: A left aortic arch is identified with normal three vessel configuration of the great vesse ls. No significant flow abnormality is seen of the common carotid bilaterally. No significant stenosis is identified involving the cervical segments of both internal carotid arteri es. Normal flow is seen within both vertebral arteries. The left vertebral artery appears dominant. IMPRESSION: No significant flow abnormality of the neck vessels is identified.
[2020-07-12 15:54] LABS: Absolute Lymphocytes (CBC) 1.8 K/uL (0.7-4.9); Basophils % 0.9 % (0-1.3); Hematocrit 43.6 % (36.0-45.0); Lymphocytes % 29.3 % (15.3-44.8); MPV 9.1 fL (7.6-11.3); RBC Red Blood Cell Count 4.83 M/uL (3.86-4.86)
[2020-07-12 15:56] LABS: Potassium 4.2 mmol/L (3.5-5.1)
[2020-07-12 15:58] LABS: Protime INR 1.04
[2020-07-12] MEDS ORDERED: levETIRAcetam 500 MG TAB ONE (16:32)
--- NOTE | 2020-07-12 16:51 | ER ---
Nurse's Notes [facility] Name: Missy Palacios Age: 75 yrs Sex: Female : 1945 Arrival Date: 07/12/2020 Time: 14:15 Bed 7 Private MD: Diagnosis: Weakness;Aphasia Presentation: 07/12 14:15 Chief complaint: Patient's son or daughter states: that she had called her mom this sv morning and noticed she was speaking slower than normal. So she went to pick her up to take her to [facility] and asked her a question and she did not respond. Turned to her and pt's eyes were open but she was not able to speak or follow direction. This happened at 1400. When I went to get pt she was able to say her name, year, month, and president. Brought her to the room and pt was able to have a full conversation with myself and tell me everything that was happening. Coronavirus screen: Client denies travel out of the [place] in the last 14 days. At this time, the client does not indicate any symptoms associated with coronavirus-19. Ebola Screen: No symptoms or risks identified at this time. Initial Sepsis Screen: Does the patient meet any 2 criteria? No. Patient's initial sepsis screen is negative. Does the patient have a suspected source of infection? No. Patient's initial sepsis screen is negative. Risk Assessment: Do you want to hurt yourself or someone else? Patient reports no desire to harm self or others. Onset of symptoms was July 12, 2020 at 14:00. 14:15 Method Of Arrival: Wheelchair sv 14:15 Acuity: SARBJIT 3 sv Triage Assessment: 14:15 General: Appears in no apparent distress. comfortable, Behavior is calm, cooperative, sv appropriate for age. Pain: Denies pain. Neuro: Level of Consciousness is awake, alert, obeys commands, Oriented to person, place, time, situation, Moves all extremities. Full function Gait is steady, Speech is normal. Respiratory: Respiratory effort is even, unlabored. Historical: - Allergies: 14:30 No Known Allergies; sv - Home Meds: 17:21 enalapril maleate 40 mg Oral tab 1 tab once daily [Active]; carvedilol 6.25 mg oral tab jr10 2 times per day [Active]; aspirin 81 mg oral TbEC once daily [Active]; atorvastatin oral oral [Active]; Clonidine Oral [Active]; Plavix Oral [Active]; escitalopram oxalate oral oral [Active]; - PMHx: 14:30 CVA; High Cholesterol; Hypertension; sv - Immunization history:: Adult Immunizations up to date. - Social history:: Smoking status: Patient denies any tobacco usage or history of. - Family history:: not pertinent. - Hospitalizations: : No recent hospitalization is reported. Screenin:15 Abuse screen: Denies threats or abuse. Denies injuries from another. Nutritional jr10 screening: No deficits noted. Tuberculosis screening: No symptoms or risk factors identified. Fall Risk No fall in past 12 months (0 pts). Secondary diagnosis (15 points) TIA, IV access (20 points). Ambulatory Aid- None/Bed Rest/Nurse Assist (0 pts). Gait- Normal/Bed Rest/Wheelchair (0 pts) Mental Status- Oriented to own ability (0 pts). Assessment: 14:15 General: Appears in no apparent distress. Behavior is calm, cooperative, appropriate jr10 for age. General: pt presents to the ED with c/o expressive aphasia and upper and lower extremity numbness that has since resolved. Pt states "I was eating lunch with my daughter and I started to noticed that my hands and my ankles started to get numb like they were strangers, I couldn't make out which one was numb. And then we went to [facility] and she turned to me and asked me if I was ok and I couldn't speak. I knew everything that was going on I just couldn't tell her what was going on." Pt reports that she was just d/c from this facility and dx with TIA and given a Rx for plavix at home. Pt reports taking medication as prescribed the last 2 days. At present pt is AAOx4, able to speak in clear, coherent sentences, appears in NAD, denies any DAVILA, cp, n/v/d, sob. Pt ambulatory independently with stable and steady gait noted. . Pain: Denies pain. Neuro: No deficits noted. Level of Consciousness is awake, alert, obeys commands, Oriented to person, place, time, situation, Appropriate for age Data Manager are equal bilaterally Moves all extremities. Gait is steady, Speech is normal, Facial symmetry appears normal, Pupils are PERRLA, Intact Denies weakness dizziness, paresthesias numbness headache photophobia. Cardiovascular: No deficits noted. Denies chest pain. Respiratory: No deficits noted. Airway is patent Respiratory effort is even, unlabored, Respiratory pattern is regular, symmetrical, Breath sounds are clear bilaterally. Denies shortness of breath. GI: No deficits noted. No signs and/or symptoms were reported involving the gastrointestinal system. Patient currently denies nausea, vomiting. : No deficits noted. No signs and/or symptoms were reported regarding the genitourinary system. EENT: No deficits noted. No signs and/or symptoms were reported regarding the EENT system. Derm: No deficits noted. No signs and/or symptoms reported regarding the dermatologic system. Musculoskeletal: No deficits noted. No signs and/or symptoms reported regarding the musculoskeletal system. 15:22 Reassessment: pt ambulatory to bathroom independently with stable and steady gait noted.jr10 17:23 Reassessment: No changes from previously documented assessment. Patient and/or family jr10 updated on plan of care and expected duration. Pain level reassessed. Patient is alert, oriented x 3, equal unlabored respirations, skin warm/dry/pink. 17:26 Reassessment: Pt family contact information Cristin (daughter): [phone]. jr10 Vital Signs: 14:15 BP 147 / 76; Pulse 74; Resp 16; Pulse Ox 97% ; sv 15:37 BP 148 / 71; Pulse 65; Resp 18; Pulse Ox 96% on R/A; jr10 16:00 BP 153 / 77; Pulse 64; Resp 18; Pulse Ox 95% on R/A; Pain 0/10; jr10 17:00 BP 163 / 82; Pulse 63; Resp 18; Pulse Ox 99% on R/A; jr10 17:43 BP 160 / 83; Pulse 61; Resp 20; Pulse Ox 95% on R/A; jr10 18:51 BP 161 / 73; Pulse 58; Resp 20; Pulse Ox 96% on R/A; jr10 19:59 Temp 98.5(O); mg2 [place] Coma Score: 14:15 Eye Response: spontaneous(4). Verbal Response: oriented(5). Motor Response: obeys jr10 commands(6). Total: 15. NIH Stroke Scale Scores: 14:15 NIHSS Score: 0 jr10 ED Course: 14:15 Patient arrived in ED. as 14:15 Arm band placed on Patient placed in an exam room, on a stretcher. sv 14:15 Patient has correct armband on for positive identification. Bed in low position. Call jr10 light in reach. Side rails up X2. Pulse ox on. NIBP on. 14:15 No provider procedures requiring assistance completed. Inserted saline lock: 20 gauge jr10 in right antecubital area, using aseptic technique. IV is patent, is intact, with good blood return, Flushed. 14:25 Christine Tomas RN is Primary Nurse. jr10 14:30 Triage completed. sv 14:42 Barrington Chapman MD is Attending Physician. rn 14:47 Radiology exam delayed due to IV insertion attempt and/or patient not having vm2 appropriate IV at this time. 15:17 CT Head Brain wo Cont In Process Unspecified. EDMS 15:17 CT Neck Angio In Process Unspecified. EDMS 15:17 CT Head Angio In Process Unspecified. EDMS 16:51 Chris Chapman MD is Hospitalizing Provider. rn 19:57 Patient admitted, IV remains in place. mg2 Administered Medications: 16:24 Drug: Keppra 500 mg Route: PO; jr10 17:27 Follow up: Response: No adverse reaction jr10 Outcome: 16:51 Decision to Hospitalize by Provider. rn 19:58 Admitted to Med/surg accompanied by tech, via wheelchair, room 223, with chart, Report mg2 called to LIAM Howard 19:58 Condition: stable 19:58 Instructed on the need for admit, Demonstrated understanding of instructions. 20:19 Patient left the ED. mg2 NIH Stroke Scale - NIH Stroke Score Date: 07/12/2020 Time: 14:15 Total Score = 0 1a. Level of Consciousness (LOC) - 0(Alert) 1b. Level of Consciousness (LOC) (Year \\T\\ Age) - 0(Both) 1c. LOC Commands (Open \\T\\ Closes Eyes/Cattle Alley Worker) - 0(Both) 2. Best Gaze (Lateral Gaze Paresis) - 0(Normal) 3. Visual Field Loss - 0(No visual loss) 4. Facial Palsy - 0(Normal) 5a. Left Arm: Motor (10-second hold) - 0(No drift) 5b. Right Arm: Motor (10-second hold) - 0(No drift) 6a. Left Leg: Motor (5-second hold - always test supine) - 0(No drift) 6b. Right Leg: Motor (5-second hold - always test supine) - 0(No drift) 7. Limb Ataxia (finger/nose \\T\\ heel/varela - test with eyes open) - 0(Absent) 8. Sensory Loss (pinprick arms/legs/face) - 0(Normal) 9. Best Language: Aphasia (description/naming/reading) - 0(No aphasia) 10. Dysarthria (speech clarity - read or repeat words) - 0(Normal) 11. Extinction and Inattention (visual/tactile/auditory/spatial/personal) - 0(No abnormality) Initials: jr10 Signatures: Dispatcher [employer] Linda Suarez, RN Sil Cruz Roman, MD MD rn McGuire, Victoria vm2 Gardose, Michele, RN RN mg2 Christine Tomas RN RN jr10
--- NOTE | 2020-07-12 16:51 | EDPHYS ---
Physician Documentation [facility] Name: Missy Palacios Age: 75 yrs Sex: Female : 1945 Arrival Date: 07/12/2020 Time: 14:15 Bed 7 Private MD: ED Physician Barrington Chapman HPI: 07/12 16:44 This 75 yrs old Female presents to ER via Wheelchair with complaints of rn Numbness. 16:44 The patient's problem is reported as dysphasia, weakness. Onset: The symptoms/episode rn began/occurred just prior to arrival. Duration: This was a single incident. The symptoms are alleviated by nothing. The symptoms are aggravated by nothing. Severity of symptoms: At their worst the symptoms were moderate in the emergency department the symptoms have resolved. The patient has experienced similar episodes in the past. Pt with confirmed CVA 1 month ago, seen by me yesterday with similar symptoms of aphasia and RLE weakness. Resolved yesterday and after consultation with Rosa Moseley, added plavix to meds and discharged. Returns today with similar symptoms, reports tingling of hands and feet before aphasia and weakness began, symptoms resolved upon arrival. . Historical: - Allergies: 14:30 No Known Allergies; sv - Home Meds: 17:21 enalapril maleate 40 mg Oral tab 1 tab once daily [Active]; carvedilol 6.25 mg oral tab jr10 2 times per day [Active]; aspirin 81 mg oral TbEC once daily [Active]; atorvastatin oral oral [Active]; Clonidine Oral [Active]; Plavix Oral [Active]; escitalopram oxalate oral oral [Active]; - PMHx: 14:30 CVA; High Cholesterol; Hypertension; sv - Immunization history:: Adult Immunizations up to date. - Social history:: Smoking status: Patient denies any tobacco usage or history of. - Family history:: not pertinent. - Hospitalizations: : No recent hospitalization is reported. ROS: 16:44 Constitutional: Negative for fever, chills, and weight loss, Neck: Negative for injury, rn pain, and swelling, Cardiovascular: Negative for chest pain, palpitations, and edema, Respiratory: Negative for shortness of breath, cough, wheezing, and pleuritic chest pain, Abdomen/GI: Negative for nausea, vomiting, diarrhea, and constipation, MS/Extremity: Negative for injury and deformity, Skin: Negative for injury, rash, and discoloration, Neuro: Negative for headache, weakness, numbness, tingling, and seizure. Exam: 16:44 Constitutional: This is a well developed, well nourished patient who is awake, alert, rn and in no acute distress. Head/Face: Normocephalic, atraumatic. Neck: Supple, full range of motion without nuchal rigidity, or vertebral point tenderness. No Meningismus. Cardiovascular: Regular rate and rhythm. No pulse deficits. Respiratory: No increased work of breathing, no retractions or nasal flaring. Abdomen/GI: Soft, non-tender MS/ Extremity: Pulses equal, no cyanosis. Neuro: Awake and alert, GCS 15, oriented to person, place, time, and situation. Cranial nerves II-XII grossly intact. Motor strength 5/5 in all extremities. Sensory grossly intact. Vital Signs: 14:15 BP 147 / 76; Pulse 74; Resp 16; Pulse Ox 97% ; sv 15:37 BP 148 / 71; Pulse 65; Resp 18; Pulse Ox 96% on R/A; jr10 16:00 BP 153 / 77; Pulse 64; Resp 18; Pulse Ox 95% on R/A; Pain 0/10; jr10 17:00 BP 163 / 82; Pulse 63; Resp 18; Pulse Ox 99% on R/A; jr10 17:43 BP 160 / 83; Pulse 61; Resp 20; Pulse Ox 95% on R/A; jr10 18:51 BP 161 / 73; Pulse 58; Resp 20; Pulse Ox 96% on R/A; jr10 19:59 Temp 98.5(O); mg2 NIH Stroke Scale Scores: 14:15 NIHSS Score: 0 jr10 Frederic Coma Score: 14:15 Eye Response: spontaneous(4). Verbal Response: oriented(5). Motor Response: obeys jr10 commands(6). Total: 15. MDM: 14:42 Patient medically screened. rn 16:44 Differential diagnosis: CVA, TIA, seizure, anxiety. Data reviewed: vital signs, nurses rn notes, lab test result(s), radiologic studies, CT scan, and as a result, I will admit patient. Counseling: I had a detailed discussion with the patient and/or guardian regarding: the historical points, exam findings, and any diagnostic results supporting the discharge/admit diagnosis, lab results, radiology results, the need for further work-up and treatment in the hospital. Response to treatment: the patient's symptoms have resolved after treatment, and as a result, I will discharge patient. Admission orders: after a detailed discussion of the patient's condition and case, the admit orders are written by me. Special discussion:. ED course: After discussion with Dr. Moseley, possible partial seizures given tingling before this episode and patient reports similar symptoms prior to other episodes, will obs, get EEG, neuro consult, and try keppra. Discussed with patient and daughter, both in agreement.. 07/12 14:44 Order name: CBC with Diff; Complete Time: 16:02 07/12 14:44 Order name: Basic Metabolic Panel; Complete Time: 16:07/12 14:44 Order name: CT Head Brain wo Cont; Complete Time: 15:36 07/12 14:44 Order name: CT Neck Angio; Complete Time: 15:36 07/12 14:44 Order name: Protime (+inr); Complete Time: 16:02 07/12 14:44 Order name: Ptt, Activated; Complete Time: 16:02 07/12 14:44 Order name: CT Head Angio; Complete Time: 15:36 07/12 14:44 Order name: IV Start; Complete Time: 14:59 07/12 17:27 Order name: CONS Physician Consult EDMS Administered Medications: 16:24 Drug: Keppra 500 mg Route: PO; jr10 17:27 Follow up: Response: No adverse reaction jr10 Disposition: 07/12/20 16:51 Hospitalization ordered by Chris Chapman for Observation. Preliminary diagnosis are Weakness, Aphasia. - Bed requested for Telemetry/MedSurg (observation). - Status is Observation. mg2 - Condition is Stable. - Problem is new. - Symptoms have improved. NIH Stroke Scale - NIH Stroke Score Date: 07/12/2020 Time: 14:15 Total Score = 0 1a. Level of Consciousness (LOC) - 0(Alert) 1b. Level of Consciousness (LOC) (Year \T\ Age) - 0(Both) 1c. LOC Commands (Open \T\ Closes Eyes/[employer]) - 0(Both) 2. Best Gaze (Lateral Gaze Paresis) - 0(Normal) 3. Visual Field Loss - 0(No visual loss) 4. Facial Palsy - 0(Normal) 5a. Left Arm: Motor (10-second hold) - 0(No drift) 5b. Right Arm: Motor (10-second hold) - 0(No drift) 6a. Left Leg: Motor (5-second hold - always test supine) - 0(No drift) 6b. Right Leg: Motor (5-second hold - always test supine) - 0(No drift) 7. Limb Ataxia (finger/nose \T\ heel/varela - test with eyes open) - 0(Absent) 8. Sensory Loss (pinprick arms/legs/face) - 0(Normal) 9. Best Language: Aphasia (description/naming/reading) - 0(No aphasia) 10. Dysarthria (speech clarity - read or repeat words) - 0(Normal) 11. Extinction and Inattention (visual/tactile/auditory/spatial/personal) - 0(No abnormality) Initials: jr10 Signatures: Dispatcher [employer] Linda Suarez RN Ashley Navaror RN RN Barrington Chiang MD MD rn Gardose, Michele, RN LIAM mg2 Christine Tomas RN RN jr10 Corrections: (The following items were deleted from the chart) 19:40 16:51 Hospitalization Ordered by Chris Chapman MD for Observation. Preliminary dw diagnosis is Weakness; Aphasia. Bed requested for Telemetry/MedSurg (observation). Status is Observation. Condition is Stable. Problem is new. Symptoms have improved. rn 20:19 19:40 07/12/2020 16:51 Hospitalization Ordered by Chris Chapman MD for mg2 Observation. Preliminary diagnosis is Weakness; Aphasia. Bed requested for Telemetry/MedSurg (observation). Status is Observation. Condition is Stable. Problem is new. Symptoms have improved. dw
[2020-07-12] MEDS ORDERED: ACETAMINOPHEN 500 MG TAB PO PRN (17:29)
--- NOTE | 2020-07-12 19:13 | P.HP ---
Certification for Inpatient Patient admitted to: Observation With expected LOS: <2 Midnights Patient will require the following post-hospital care: None Practitioner: I am a practitioner with admitting privileges, knowledge of patient current condition, hospital course, and medical plan of care. Services: Services provided to patient in accordance with Admission requirements found in Title 42 Section 412.3 of the Code of Federal Regulations <Cain Hartley - Last Filed: 07/12/20 19:29> Patient History Date of Service: 07/12/20 Reason for admission: TIA versus CVA versus seizure History of Present Illness: 75-year-old female with a past medical history of hypertension and prior CVA 1 month ago presents to the emergency room complaining of vague symptoms of dysphagia, weakness. States that she has some tingling sensation in both arms. Patient was seen in the ER yesterday with complaints of a aphasia and right lowe r extremity weakness. Neurology was consulted Dr. Moseley and Plavix was added to the patient's discharge medications. Patient returns today with vague symptoms. In the emergency room imaging was unremarkable. CTA of the neck, CT of the head and a CTA of the head showed no acute pathology. Patient is calm, oriented times and alert. She is in no distress. Neurology was consulted again and is requesting that patient be placed in observation for further workup. Patient will be placed in observation and further evaluated. Home medications list reviewed: No - Past Medical/Surgical History Diabetic: No -: Essential hypertension -: Measles -: Chicken pox -: CVA -: Cataract sx -: plastic sx eyes -: "tubes tied" Psychosocial/ Personal History: Patient lives independently at home. Patient is . recently placed in residential due to Alzheimer's - Family History Father -: Hypertension Mother -: Other (see notes) Notes: Alzheimer's Sister -: Other (see notes) Notes: Parkinsons - Social History Smoking Status: Never smoker Alcohol use: Yes CD- Drugs: No Caffeine use: Yes Place of Residence: Home <Cain Hartley - Last Filed: 07/12/20 19:29> Date of Service: 07/12/20 <Chris Chapman - Last Filed: 07/12/20 20:41> Allergies No Known Allergies Allergy (Verified 06/12/20 15:12) Home Medications: Enalapril Maleate [Vasotec] 40 mg PO DAILY 06/12/20 Aspirin Chewable [Aspirin Chewable*] 81 mg PO DAILY 30 Days #30 tab.chew 06/13/20 Atorvastatin Calcium [Lipitor] 40 mg PO BEDTIME 30 Days #30 tab 06/13/20 Cefuroxime [Ceftin] 500 mg PO BID 7 Days #14 tab 06/13/20 carvediloL [Coreg*] 3.125 mg PO BID 6AM 6PM 30 Days #60 tab 06/13/20 Review of Systems General: As per HPI Eyes: Unremarkable ENT: Unremarkable Respiratory: Unremarkable Cardiovascular: Unremarkable Gastrointestinal: Unremarkable Genitourinary: Unremarkable Musculoskeletal: Unremarkable Integumentary: Unremarkable Neurological: Weakness, Numbness, As per HPI Lymphatics: Unremarkable <Cain Hartley - Last Filed: 07/12/20 19:29> Physical Examination - Vital Signs Blood Pressure: 147/76 Pulse: 74 Respirations: 16 Pulse Ox (%): 97 (RA) - Physical Exam General: Alert, In no apparent distress, Oriented x3 HEENT: Atraumatic, Normocephalic, PERRLA, Mucous membr. moist/pink Neck: Supple, Other (Trachea midline) Respiratory: Clear to auscultation bilaterally, Normal air movement Cardiovascular: No edema, Normal pulses, Normal S1 S2 Capillary refill: <2 Seconds Gastrointestinal: Normal bowel sounds, Soft and benign, Non-distended Musculoskeletal: No swelling, No contractures, No erythema Integumentary: No rashes, No breakdown, No significant lesion, No tenderness/swelling Neurological: Normal tone, Sensation intact, Other (Bilateral upper extremity paresthesias), Abnormal gait, Abnormal strength - Studies Laboratory Data (last 24 hrs) 07/12/20 15:00: PT 12.3, INR 1.04, APTT 34.1 07/12/20 15:00: Sodium 142, Potassium 4.2, BUN 15, Creatinine 1.00, Glucose 147 H 07/12/20 15:00: WBC 6.2, Hgb 14.5, Hct 43.6, Plt Count 221 <Cain Hartley - Last Filed: 07/12/20 19:29> - Studies Laboratory Data (last 24 hrs) 07/12/20 15:00: PT 12.3, INR 1.04, APTT 34.1 07/12/20 15:00: Sodium 142, Potassium 4.2, BUN 15, Creatinine 1.00, Glucose 147 H 07/12/20 15:00: WBC 6.2, Hgb 14.5, Hct 43.6, Plt Count 221 <Chris Chapman - Last Filed: 07/12/20 20:41> Assessment and Plan - Plan Impression: CVA versus TIA versus seizures: Essential hypertension: Hyperlipidemia: Plan: CVA versus TIA versus seizures: Patient was diagnosed with CVA last month. Imaging in the ED shows no acute pathology. Lab work fairly unremarkable. Neurology- consulted. Patient was started on Plavix yesterday. Will order EEG. Neurology to further evaluate patient. Fall precautions. Essential hypertension: Will resume all medications once verified. Monitor blood pressure. Will order hydralazine 10 mg q.4 hr p.r.n. if necessary Hyperlipidemia: Will resume all medications once verified. Discharge Plan: Home Plan to discharge in: 48 Hours - Advance Directives Does patient have a Living Will: Yes Does patient have a Durable POA for Healthcare: Yes - Code Status/Comfort Care Code Status Assessed: Yes Time Spent Managing Pts Care (In Minutes): 55 <Cain Hartley - Last Filed: 07/12/20 19:29> Physician Review Additional Text: I reviewed the plan of care for this patient with Cain Hartley, and I agree with the management as noted above. <Chris Chapman - Last Filed: 07/12/20 20:41>
[2020-07-12 21:19] VITALS: BMI 22.8
[2020-07-12] MEDS ORDERED: HYDRALAZINE HCL 20 MG/ML VIAL IV PRN (22:31)
[2020-07-12] MEDS ORDERED: LORazepam 2 MG/ML VIAL IV PRN (22:31)
[2020-07-12] MEDS ORDERED: LORazepam 2 MG/ML VIAL ONE (22:52)
[2020-07-13] MEDS ORDERED: carvediloL 6.25 MG TAB PO SCH ×2 (06:00→08:00)
[2020-07-13] MEDS ORDERED: carvediloL 3.125 MG TAB PO SCH ×2 (06:00)
[2020-07-13 06:04] LABS: Absolute Lymphocytes (CBC) 2.3 K/uL (0.7-4.9); Basophils % 0.8 % (0-1.3); Hematocrit 41.3 % (36.0-45.0); Lymphocytes % 38.7 % (15.3-44.8); MPV 8.5 fL (7.6-11.3); RBC Red Blood Cell Count 4.53 M/uL (3.86-4.86)
[2020-07-13 06:50] LABS: Albumin 3.2 g/dL (3.4-5.0); Bilirubin Total 0.5 mg/dL (0.2-1.0); Potassium 3.9 mmol/L (3.5-5.1); Protein, Total 6.6 g/dL (6.4-8.2)
[2020-07-13] MEDS ORDERED: ENALAPRIL 10 MG TAB PO SCH (09:00)
[2020-07-13] MEDS ORDERED: cloNIDine HCL 0.1 MG TAB PO SCH (09:00)
[2020-07-13] MEDS ORDERED: ASPIRIN EC 81 MG TAB PO SCH (09:00)
[2020-07-13] MEDS ORDERED: ASPIRIN 81 MG CHEWABLE TABLET PO SCH (09:00)
[2020-07-13] MEDS ORDERED: CLOPIDOGREL 75 MG TABLET PO SCH ×2 (09:00)
[2020-07-13 09:33] VITALS: O2SAT 96
--- NOTE | 2020-07-13 14:47 | EEG ---
CHART: [id number] TEST ID#: [id number] DATE OF STUDY: 07/13/2020 THE EEG WAS RECORDED PORTABLE IN THE PATIENT'S ROOM ON A 17 CHANNEL MACHINE. ELECTRODES WERE APPLIED IN THE USUAL MANNER USING THE INTERNATIONAL 10-20 SYSTEM. THE WAKING BACKGROUND RHYTHM IN THIS RECORD CONSISTS OF VERY WELL DEVELOPED AND WELL ORGANIZED WAVES OF 10 HZ., MAXIMAL IN THE POSTERIOR HEAD REGIONS WHICH ATTENUATE NORMALLY WITH EYE OPENING. EXCESS LOW-VOLTAGE 18-22 HZ ACTIVITY IS DIFFUSELY EXPRESSED IN ALL REGIONS. THERE ARE NO FOCAL OR LATERALIZING FEATURES. NO EPILEPTIFORM ACTIVITY APPEARS. SLEEP DID NOT OCCUR. HYPERVENTILATION WAS NOT PERFORMED. PHOTIC STIMULATION PRODUCED GOOD DRIVING BILATERALLY. IMPRESSION: NORMAL EEG FOR THE AGE OF THE PATIENT IN WAKE AND DROWSY STATES.
[2020-07-13 17:31] VITALS: BP 144/77; TEMP 96.9
[2020-07-13] MEDS ORDERED: ATORVASTATIN 40 MG TAB PO SCH (21:00)
[2020-07-13] MEDS ORDERED: levETIRAcetam 500 MG TAB PO SCH (21:00)
--- NOTE | 2020-07-13 21:32 | P.DS ---
Admission Date: 07/12/20 Discharge Date: 07/14/20 Disposition: ROUTINE DISCHARGE Discharge Condition: GOOD Reason for Admission: TIA versus CVA versus seizure Consultations: Neurology - Dr. Moseley Procedures: CT - Head Brain Wo Cont - 07/12/2020 3:17 pm IMPRESSION: No acute intracranial abnormality. CT - Head angio - 07/12/2020 3:17 pm IMPRESSION: No significant flow abnormality is detected. CT - Neck Angio - 07/12/2020 3:17 pm IMPRESSION: No significant flow abnormality of the neck vessels is identified. Problem List CVA versus TIA versus seizures Essential hypertension Hyperlipidemia Brief History of Present Illness: 75-year-old female with a past medical history of hypertension and prior CVA 1 month ago presents to the emergency room complaining of vague symptoms of dysphagia, weakness. States that she has some tingling sensation in both arms. Patient was seen in the ER yesterday with complaints of a aphasia and right lower extremity weakness. Neurology was consulted Dr. Moseley and Plavix was added to the patient's discharge medications. Patient returns today with vague symptoms. In the emergency room imaging was unremarkable. CTA of the neck, CT of the head and a CTA of the head showed no acute pathology. Patient is calm, oriented times and alert. She is in no distress. Neurology was consulted again and is requesting that patient be placed in observation for further workup. Patient will be placed in observation and further evaluated. Hospital Course: She was started on Keppra in the ED. Underwent EEG (normal) the following day. She did report a brief (<1min) recurrence of paresthesias in b/l upper & lower extremities, along with mild double vision during her hospitalization. She did not have any irregular rhythms noted on Telemetry. Neurology was consulted and recommended discharge with Keppra 250mg BID and f/u with Dr. Israel Osborne in 1 month for possible ambulatory video EEG monitoring to further workup possible complex partial seizures of unclear etiology. Vital Signs/Physical Exam: Temp Pulse Resp BP Pulse Ox 96.9 F 56 16 144/77 H 98 07/13/20 16:00 07/13/20 16:00 07/13/20 16:00 07/13/20 16:00 07/13/20 16:00 General: Alert, In no apparent distress HEENT: Atraumatic, PERRLA, EOMI Neck: Supple, JVD not distended Respiratory: Clear to auscultation bilaterally, Normal air movement Cardiovascular: Regular rate/rhythm, Normal S1 S2 Gastrointestinal: Normal bowel sounds, No tenderness Musculoskeletal: No tenderness Integumentary: No rashes Neurological: Normal speech, Normal strength at 5/5 x4 extr, Sensation intact, Cranial nerves 3-12 intact, Normal affect Laboratory Data at Discharge: WBC 5.9 K/uL (4.3-10.9) 07/13/20 05:38 Hgb 13.7 g/dL (12.0-15.0) 07/13/20 05:38 Hct 41.3 % (36.0-45.0) 07/13/20 05:38 Plt Count 185 K/uL (152-406) 07/13/20 05:38 PT 12.3 SECONDS (9.5-12.5) 07/12/20 15:00 INR 1.04 07/12/20 15:00 APTT 34.1 SECONDS (24.3-36.9) 07/12/20 15:00 Sodium 143 mmol/L (136-145) 07/13/20 05:38 Potassium 3.9 mmol/L (3.5-5.1) 07/13/20 05:38 BUN 13 mg/dL (7-18) 07/13/20 05:38 Creatinine 0.87 mg/dL (0.55-1.3) 07/13/20 05:38 Glucose 86 mg/dL (74-106) 07/13/20 05:38 Total Bilirubin 0.5 mg/dL (0.2-1.0) 07/13/20 05:38 AST 18 U/L (15-37) 07/13/20 05:38 ALT 25 U/L (12-78) 07/13/20 05:38 Alkaline Phosphatase 88 U/L (45-117) 07/13/20 05:38 Home Medications: Enalapril Maleate [Vasotec] 40 mg PO DAILY 06/12/20 Aspirin Chewable [Aspirin Chewable*] 81 mg PO DAILY 30 Days #30 tab.chew 06/13/20 carvediloL [Coreg*] 3.125 mg PO BID 6AM 6PM 30 Days #60 tab 06/13/20 Atorvastatin Calcium [Lipitor] 10 mg PO BEDTIME 07/12/20 Clonidine HCl [Catapres] 0.1 mg PO DAILY 07/12/20 Clopidogrel Bisulfate [Plavix*] 75 mg PO DAILY 07/12/20 levETIRAcetam [Keppra Tab] 250 mg PO BID 30 Days #15 tab 07/13/20 New Medications: levETIRAcetam [Keppra Tab] 250 mg PO BID 30 Days #15 tab Patient Discharge Instructions: No driving Diet: Regular Activity: Fall precautions Followup: Israel Dickerson MD [Primary Care Provider] - Time spent managing pt's care (in minutes): 40
--- NOTE | 2020-07-13 21:38 | CON ---
Reason For Consultation: Consultation called by hospitalist because of possible seizure-like activit y versus TIA. History Of Present Illness: Ms. Palacios is a 75-year-old patient with hypertension and a re cent hospitalization for very similar episode where she describes a progressive tingling that may sta rt in her feet or hands and moves proximally, may last several minutes and may be associated with meenakshi bility to speak words. She does maintain the capacity to hear and understand what is going on around her. At her recent admission, she had negative workup for stroke and in the emergency room, she did have a CT angiogram of the head and neck, which showed no abnormalities. She did have an electroenc ephalogram, which was normal. She was given Keppra in the emergency room 250 mg twice daily to begin because of her possible seizur es and in addition, she was continued on aspirin 81 mg daily, Plavix 75 mg daily, and Lipitor 10 mg a t bedtime for reduction of stroke risk. She was told to after discharge followup with her neurologis t, Dr. Israel Osborne for possible long-term ambulatory video EEG monitoring to characterize further episodes while she is still maintained on Keppra. She should be on the Keppra at least 3 months if s he remains free of events. Past Medical History: Hypertension, measles, chickenpox, stroke. Past Surgical History: Cataract surgery, eye surgery, and tubal ligation. Social History: She is . Denies alcohol, tobacco, or IV drug use. Family History: Positive for hypertension in father and Alzheimer disease in mother, sister with Par kinson disease. Allergies: NO KNOWN DRUG ALLERGIES. Review of Systems: She does report for at least 2 months repeated episodes of progressive tingling as mentioned and ofte n times more on the right than the left side and the inability to speak, but no other positives on a 10-point review of systems such as genitourinary, gastrointestinal, integumentary issues. No focal p ersistent weakness or numbness in the arms or legs. Physical Examination: Vital Signs: Blood pressure 124 ranging up to 144/60 to 77, pulse of 56, respiratory rate 16, temper ature 97.3, oxygen saturation 98% on room air. Weight 146 pounds, height 5 feet 7 inches, BMI 22.9. General: Ms. Palacios is lying in bed, in no acute distress. HEENT: She is normocephalic, atraumatic. Sclerae anicteric. Oropharynx pink and moist. Neck: Supple. Chest: Clear. Heart: Regular. Extremities: No edema, cyanosis, or clubbing. Neurologic: She is alert and oriented to person, place, time, and situation. She follows all comman ds appropriately. Cranial nerves 2 through 12 are intact by exam. Motor examination, the upper and lower extremities intact by exam. Sensation, normal sensation and responses to light touch, temperat ure in the arms and legs. Coordination intact in upper and lower extremities. Reflexes 2+ in upper and lower extremities. Her gait, she has good stance and stride, a little bit arm swing. Laboratory Studies: Complete blood count with differential is completely normal. Coagulation panel is normal. Chemistries show slightly elevated chloride of 109. Her glucose ranged from 86 to 147. Liver function studies are normal. Assessment: Ms. 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 She has a normal EEG and CT angiogram of head and neck are unremarkable. She is now on Kepp ra and is on stroke risk reduction medications including aspirin, Plavix, and statin. Plan: 1.After discharge, followup with Dr. Israel Osborne in 1 month for possible ambulatory video EEG monitoring. 2.Continue all medications as indicated. SERGIO Voice ID: [id number] Report ID: [id number]
== END 2020-07-13 16:51 | disposition home or self-care (01) ==
LOC: ER 14:12 → ERHOLD 17:25 → 2ND 20:04
PROVIDERS: ADMIT Hospitalist; ATTEND Hospitalist
DX: R53.1 Weakness (principal); R47.01 Aphasia; R13.10 Dysphagia, unspecified; R20.2 Paresthesia of skin; H53.2 Diplopia; I49.9 Cardiac arrhythmia, unspecified; I10 Essential (primary) hypertension; E78.5 Hyperlipidemia, unspecified; Z86.73 Personal history of transient ischemic attack (TIA), and cerebral infarction without residual deficits; Z79.82 Long term (current) use of aspirin; Z79.02 Long term (current) use of antithrombotics/antiplatelets; Z79.899 Other long term (current) drug therapy
CPT/HCPCS: 95819; 85025 ×2; 80048; 36415; 85610; 85730; 80053; 70450; 70496; 70498; 94760 ×2; 99285; Q9967; G0378 ×3

== ENCOUNTER → 2024-01-11 | Emergency (ER) | payer OTHER ==
[~2024-01-11] MED LIST: NA CHLORIDE 0.9% 1,000 ML ONE
[2024-01-11 01:58] LABS: Absolute Lymphocytes (CBC) 2.2 K/uL (0.7-4.9); Hematocrit 41.6 % (36.0-45.0); Lymphocytes % 42.5 % (15.3-44.8); MCV 91.7 fL (80-100); MPV 8.8 fL (7.6-11.3); Platelets 156 thou/uL (152-406); RBC Red Blood Cell Count 4.54 M/uL (3.86-4.86)
[2024-01-11 02:07] LABS: Potassium 3.8 mEq/L (3.5-5.1); Troponin High Sensitivity 6.3 pg/mL (<58.9)
--- NOTE | 2024-01-11 03:34 | EDPHYS ---
Physician Documentation [facility] Name: Missy Palacios Age: 78 yrs Sex: Female : 1945 Arrival Date: 01/11/2024 Time: 00:33 Bed 6 Private MD: FRANCHESKA Physician HPI: 01/11 01:09 This 78 yrs old Female presents to ER via Ambulatory with complaints of High ec2 Blood Pressure, Headache. 01:09 Patient arrives today for evaluation of headache and elevated blood pressure. Patient ec2 with history of hypertension, on clonidine as well as long-term antihypertensives states that she been checking her blood pressures and they have been elevated 170s to 190s. Patient reports no chest pain or difficulty breathing. Patient with concern for stroke. Patient with no stroke symptoms. Patient reports headache as well, supple nature. Denies recent falls or injuries. Not on blood thinners.. Historical: - Allergies: 01:06 No Known Allergies; lg3 - Home Meds: 01:06 aspirin 81 mg Oral TbEC once daily [Active]; Clonidine Oral [Active]; losartan oral lg3 [Active]; carvedilol 6.25 mg Oral tab 2 times per day [Active]; rosuvastatin oral [Active]; doxazosin oral [Active]; - PMHx: 01:06 CVA; High Cholesterol; Hypertension; Anxiety; lg3 - PSHx: 01:06 Ligation of fallopian tube; lg3 - Immunization history:: Adult Immunizations up to date, Client reports receiving the 2nd dose of the Covid vaccine, Flu vaccine is up to date. - Social history:: Smoking status: Patient denies any tobacco usage or history of. Patient/guardian denies using alcohol, street drugs. ROS: 01:09 Constitutional: as per hpi ec2 Exam: 01:09 Constitutional: GEN: NAD Head: atraumatic Eyes: EOMI Ears: External ears are ec2 normal. CV: regular rate LUNGS: no respiratory distress ABD: non-distended SKIN: no evidence of rashes MSK: no evidence of trauma NEURO: moves all extremities equally, cranial nerves II 12 intact, strength intact all 4 extremities, intact sensation. Vital Signs: 01:02 BP 186 / 78; Pulse 57; Resp 17 S; Temp 96.7; Pulse Ox 97% on R/A; Weight 76.2 kg (R); lg3 Height 5 ft. 6 in. (R); Pain 0/10; 03:08 BP 161 / 84; Pulse 58; Resp 14; Pulse Ox 97% on R/A; Pain 0/10; tm6 03:49 BP 182 / 88; Pulse 56; Resp 15; Temp 97.1(TE); Pulse Ox 99% on R/A; Pain 0/10; tm6 01:02 Body Mass Index 27.12 (76.20 kg, 167.64 cm) lg3 01:02 Pain Scale: Adult lg3 03:08 Pain Scale: Adult tm6 03:49 Pain Scale: Adult tm6 MDM: 01:06 Patient medically screened. ec2 01:09 Data reviewed: vital signs. ED course: Patient arrives today for evaluation of headache ec2 and elevated blood pressure. Examination remarkable for neuro intact individual is otherwise in no acute distress with a reassuring examination. Will obtain lab work and CT imaging of the head to evaluate for intracranial mass, will evaluate for electrolyte symptoms as well as anemia. Will treat the patient's headache and reassess the patient.. 01:18 ED course: EKG independently reviewed and interpreted by me, shows normal sinus rhythm, ec2 rate 54, no acute ST segment elevations, nonconcerning intervals.. 02:39 ED course: Metabolic profile with appropriate electrolytes and renal function. CBC is ec2 reassuring. Troponin within normal ranges. . 03:13 ED course: CT scan of the head shows no acute intracranial process. Will discharge ec2 home. Return precautions given. Instructed her to follow-up with her primary care doctor to discuss further blood pressure management.. 01/11 01:07 Order name: Basic Metabolic Panel; Complete Time: 02:39 ec2 01/11 01:07 Order name: CBC with Diff; Complete Time: 02:39 ec2 01/11 01:07 Order name: Troponin HS; Complete Time: 02:39 ec2 01/11 01:07 Order name: CT Head Brain wo Cont ec2 01/11 01:07 Order name: EKG; Complete Time: 01:07 ec2 01/11 01:07 Order name: Cardiac monitoring; Complete Time: 03:03 ec2 01/11 01:07 Order name: EKG - Nurse/Tech; Complete Time: 01:11 ec2 01/11 01:07 Order name: IV Saline Lock; Complete Time: : ec2 01/11 01:07 Order name: Labs collected and sent; Complete Time: ec2 01/11 01:07 Order name: O2 Per Protocol; Complete Time: ec2 01/11 01:07 Order name: O2 Sat Monitoring; Complete Time: ec2 Administered Medications: 03:03 Not Given (Patient Refused): [id number] mg IVP once; over 1 to 2 minutes tm6 03:03 Not Given (Patient Refused): [id number] mg IVP once tm6 03:10 Drug: NS 0.9% IV 1000 ml IV at 1 bolus Per protocol; 1000 mL bolus Route: IV; Rate: 1 tm6 bolus; Site: left hand; Disposition Summary: 01/11/24 03:34 Discharge Ordered Problem: chronic ec2 Symptoms: are unchanged ec2 Condition: Stable ec2 Diagnosis - Headache ec2 - Essential (primary) hypertension ec2 Followup: ec2 - With: Private Physician - When: - Reason: Re-evaluation by your physician Discharge Instructions: - Discharge Summary Sheet ec2 - General Headache Without Cause ec2 Forms: - Medication Reconciliation Form ec2 - Thank You Letter ec2 - Antibiotic Education ec2 - Prescription Opioid Use ec2 - Patient Portal Instructions ec2 - Leadership Thank You Letter ec2 Signatures: Dispatcher [employer] Cass Watts RN RN lg3 Tae José MD MD ec2 Elsy Bennett RN RN tm6 Corrections: (The following items were deleted from the chart) 01:10 01:09 Patient arrives today for evaluation of headache and elevated blood pressure. ec2 Patient with history of hypertension, on clonidine as well as long-term antihypertensives states that she been checking her blood pressures and they have been elevated 170s to 190s. Patient reports no chest pain or difficulty breathing. Patient with concern for stroke. Patient with no stroke symptoms. Patient reports headache as well. Denies any falls or injuries. Not on blood thinners.. ec2
--- NOTE | 2024-01-11 03:34 | ER ---
Nurse's Notes [facility] Name: Missy Palacios Age: 78 yrs Sex: Female : 1945 Arrival Date: 01/11/2024 Time: 00:33 Bed 6 Private MD: Diagnosis: Headache;Essential (primary) hypertension Presentation: 01/11 01:02 Chief complaint: Patient states: i think im going to have a stroke because my blood lg3 pressure has been high all day. reports systolic of 160-170. denies symptoms at this time. Coronavirus screen: Client denies travel out of the [place] in the last 14 days. At this time, the client does not indicate any symptoms associated with coronavirus-19. Ebola Screen: No symptoms or risks identified at this time. Initial Sepsis Screen: Does the patient meet any 2 criteria? No. Patient's initial sepsis screen is negative. Does the patient have a suspected source of infection? No. Patient's initial sepsis screen is negative. Risk Assessment: Do you want to hurt yourself or someone else? Patient reports no desire to harm self or others. Onset of symptoms was January 10, 2024. 01:02 Method Of Arrival: Ambulatory lg3 01:02 Acuity: SARBJIT 3 lg3 Triage Assessment: 01:06 Headache History: Other denies DAVILA at this time. General: Appears in no apparent lg3 distress. comfortable, Behavior is cooperative, anxious. Pain: Denies pain. EENT: No deficits noted. No signs and/or symptoms were reported regarding the EENT system. Neuro: No deficits noted. Rodriguez Agitation-Sedation Scale (RASS): 0 - Alert and Calm Level of Consciousness is awake, alert, obeys commands, Oriented to person, place, time, situation. Cardiovascular: No deficits noted. Denies chest pain, shortness of breath, Capillary refill < 3 seconds Clubbing of nail beds is absent JVD is absent Patient's skin is warm and dry. Respiratory: No deficits noted. Airway is patent Respiratory effort is even, unlabored, Respiratory pattern is regular, symmetrical, Breath sounds are clear bilaterally. GI: No deficits noted. No signs and/or symptoms were reported involving the gastrointestinal system. Abdomen is round non-distended. : No deficits noted. No signs and/or symptoms were reported regarding the genitourinary system. Derm: No deficits noted. No signs and/or symptoms reported regarding the dermatologic system. Skin is intact, is healthy with good turgor, Skin is dry, Skin is normal, Skin temperature is warm. Musculoskeletal: No deficits noted. No signs and/or symptoms reported regarding the musculoskeletal system. Circulation, motion, and sensation intact. Range of motion: intact in all extremities. 03:51 Pain: Pain Also complains of. tm6 Historical: - Allergies: 01:06 No Known Allergies; lg3 - Home Meds: 01:06 aspirin 81 mg Oral TbEC once daily [Active]; Clonidine Oral [Active]; losartan oral lg3 [Active]; carvedilol 6.25 mg Oral tab 2 times per day [Active]; rosuvastatin oral [Active]; doxazosin oral [Active]; - PMHx: 01:06 CVA; High Cholesterol; Hypertension; Anxiety; lg3 - PSHx: 01:06 Ligation of fallopian tube; lg3 - Immunization history:: Adult Immunizations up to date, Client reports receiving the 2nd dose of the Covid vaccine, Flu vaccine is up to date. - Social history:: Smoking status: Patient denies any tobacco usage or history of. Patient/guardian denies using alcohol, street drugs. Screenin:11 [facility] ED Fall Risk Assessment (Adult) History of falling in the last 3 months, lg3 including since admission No falls in past 3 months (0 pts). Abuse screen: Denies threats or abuse. Denies injuries from another. Nutritional screening: No deficits noted. Tuberculosis screening: No symptoms or risk factors identified. Assessment: 01:10 General: see triage assessment. Pain: Denies pain. lg3 03:09 Reassessment: Patient appears in no apparent distress at this time. Patient and/or tm6 family updated on plan of care and expected duration. Pain level reassessed. Patient is alert, oriented x 3, equal unlabored respirations, skin warm/dry/pink. Reassessment: patient said she no longer has a headache. Pain: Denies pain. Neuro: Level of Consciousness is awake, alert, obeys commands, Oriented to person, place, time, situation. Cardiovascular: Capillary refill < 3 seconds Patient's skin is warm and dry. Rhythm is sinus bradycardia. Respiratory: Airway is patent Respiratory effort is even, unlabored, Respiratory pattern is regular, symmetrical. GI: Abdomen is flat, non-distended. : No signs and/or symptoms were reported regarding the genitourinary system. EENT: No signs and/or symptoms were reported regarding the EENT system. Derm: No signs and/or symptoms reported regarding the dermatologic system. Musculoskeletal: No signs and/or symptoms reported regarding the musculoskeletal system. 03:50 Reassessment: Patient appears in no apparent distress at this time. Patient and/or tm6 family updated on plan of care and expected duration. Pain level reassessed. Patient is alert, oriented x 3, equal unlabored respirations, skin warm/dry/pink. Vital Signs: 01:02 BP 186 / 78; Pulse 57; Resp 17 S; Temp 96.7; Pulse Ox 97% on R/A; Weight 76.2 kg (R); lg3 Height 5 ft. 6 in. (R); Pain 0/10; 03:08 BP 161 / 84; Pulse 58; Resp 14; Pulse Ox 97% on R/A; Pain 0/10; tm6 03:49 BP 182 / 88; Pulse 56; Resp 15; Temp 97.1(TE); Pulse Ox 99% on R/A; Pain 0/10; tm6 01:02 Body Mass Index 27.12 (76.20 kg, 167.64 cm) lg3 01:02 Pain Scale: Adult lg3 03:08 Pain Scale: Adult tm6 03:49 Pain Scale: Adult tm6 ED Course: 00:34 Patient arrived in ED. jj6 00:39 Tae José MD is Attending Physician. ec2 00:48 Triage completed. lg3 01:06 Arm band placed on left wrist. lg3 01:11 Patient has correct armband on for positive identification. lg3 01:11 Patient maintains SpO2 saturation greater than 95% on room air. lg3 01:26 Inserted saline lock: 20 gauge in left hand, using aseptic technique. Blood collected. lg3 01:27 Basic Metabolic Panel Sent. lg3 01:27 CBC with Diff Sent. lg3 01:27 Troponin HS Sent. lg3 02:43 CT Head Brain wo Cont In Process Unspecified. EDMS 02:53 Elsy Bennett RN is Primary Nurse. tm6 03:09 Provided Education on: plan of care. Client placed on continuous cardiac and pulse tm6 oximetry monitoring. NIBP monitoring applied. gelatin plant supervisor on. Pulse ox on. NIBP on. Door closed. Noise minimized. Warm blanket given. 03:09 No provider procedures requiring assistance completed. tm6 03:51 IV discontinued, intact, bleeding controlled, No redness/swelling at site. Pressure tm6 dressing applied. Administered Medications: 03:03 Not Given (Patient Refused): [id number] mg IVP once; over 1 to 2 minutes tm6 03:03 Not Given (Patient Refused): ohrocxftljoomhk20 mg IVP once tm6 03:10 Drug: NS 0.9% IV 1000 ml IV at 1 bolus Per protocol; 1000 mL bolus Route: IV; Rate: 1 tm6 bolus; Site: left hand; Medication: 03:09 VIS not applicable for this client. tm6 Outcome: 03:34 Discharge ordered by . ec2 03:51 Discharged to home ambulatory, with family, tm6 03:51 Condition: stable 03:51 Discharge instructions given to patient, family, Instructed on discharge instructions, follow up and referral plans. Demonstrated understanding of instructions, follow-up care, 03:52 Patient left the ED. tm6 Signatures: Dispatcher [employer] Cass Watts RN RN lg3 Carolyn [id number] Tae José MD MD ec2 Elsy Bennett RN RN tm6 Corrections: (The following items were deleted from the chart) 00:48 00:46 Chief complaint: Patient states: middle/lower abdominal pain beginning yesterday lg3 morning and worsening. new onset dizziness and nausea lg3 00:48 00:46 Coronavirus screen: Client denies travel out of the [place] in the last 14 days. At lg3 this time, the client does not indicate any symptoms associated with coronavirus-19. lg3 00:48 00:46 Ebola Screen: No symptoms or risks identified at this time. lg3 lg3 00:48 00:46 Initial Sepsis Screen: Does the patient meet any 2 criteria? No. Patient's lg3 initial sepsis screen is negative. Does the patient have a suspected source of infection? No. Patient's initial sepsis screen is negative. lg3 00:48 00:46 Risk Assessment: Do you want to hurt yourself or someone else? Patient reports no lg3 desire to harm self or others. lg3 00:48 00:46 Onset of symptoms was January 10, 2024 lg3 lg3 00:48 00:46 Method Of Arrival: Ambulatory lg3 lg3 00:48 00:46 BP 189 / 82; Pulse 115bpm; Resp 17bpm; Spontaneous; Pulse Ox 98% RA; Temp 98.5F lg3 Temporal; 124.74 kg Reported; Height 5 ft. 11 in. Reported; BMI: 38.3; Pain 7/10, Adult; lg3 00:48 00:46 Acuity: SARBJIT 3 lg3 lg3
[2024-01-11 04:22] VITALS: BP 182/88; TEMP 97.1; O2SAT 99
--- NOTE | 2024-01-11 10:57 | RAD REPORT ---
EXAM DESCRIPTION: CT - Head Brain Wo Cont - 01/11/2024 6:53 am CLINICAL HISTORY: The patient is 78 years old and is Female; DAVILA TECHNIQUE: Axial computed tomography images of the head/brain without intravenous contrast. Sagitt al and coronal reformatted images were created and reviewed. This CT exam was performed using one o r more of the following dose reduction techniques: automated exposure control, adjustment of the mA and/or kV according to patient size, and/or use of iterative reconstruction technique. COMPARISON: No relevant prior studies available. FINDINGS: Brain: Mild nonspecific white matter changes likely related to chronic microvascular isc hemic disease. Remote lacunar infarct in the left basal ganglia. No hemorrhage. Ventricles: Unremarkable. No ventriculomegaly. Bones/joints: Unremarkable. No acute fracture. Soft tissues: Unremarkable. Sinuses: Unremarkable as visualized. Mastoid air cells: Unremarkable as visualized. No mastoid effusion. IMPRESSION: No acute intracranial abnormality. Electronically signed by: Calros Cuevas MD 01/11/2024 03:07 AM FUR DRESSING SUPERVISOR Due to temporary technical issues with the PACS/Fluency reporting system, reports are being signed by the in house radiologists without review as a courtesy to insure prompt reporting. The interpreting radiologist is fully responsible for the content of the report.
--- NOTE | 2024-01-11 14:28 | EKG ---
Test Date: 2024-01-11 Test Time: 01:09:12 Operations And Maintenance Specialist: DIANE MEASUREMENT RESULTS: Intervals: Rate: 54 IL: 152 QRSD: 94 QT: 454 QTc: 430 [place]: P: 64 IL: 152 QRS: 35 T: -5 INTERPRETIVE STATEMENTS: Sinus bradycardia Septal infarct, age undetermined Abnormal ECG Compared to ECG 07/11/2020 09:49:53 No significant changes Electronically Signed On 01-11-24 14:26:03 MOBILE SALES ASSISTANT by Greg Lima
== END ==
LOC: ER 00:33
DX: R51.9 Headache, unspecified (principal); I10 Essential (primary) hypertension; E78.00 Pure hypercholesterolemia, unspecified; Z86.73 Personal history of transient ischemic attack (TIA), and cerebral infarction without residual deficits; Z79.82 Long term (current) use of aspirin
CPT/HCPCS: 93005; 85025; 80048; 36415; 84484; 70450; J7030; 99285